=== PATIENT | male | born 1940 | race Caucasian/White ===

== ENCOUNTER 2016-05-28 17:16 | Inpatient (IN) ==
--- NOTE | 2016-05-28 18:54 | PROVIDER DOCUMENTATION ---
HPI-General Adult - General Chief Complaint: Fall Stated Complaint: WEAKNESS/FALL Time Seen by Provider: 05/28/16 18:41 Source: patient, family Allergies/Adverse Reactions: Patient Allergies Allergy/AdvReac Type Severity Reaction Status Date / Time esomeprazole magnesium * Allergy Mild NAUSEA/VOMI Verified 05/28/16 18:36 [From Nexium] TING oxycodone HCl * Allergy Mild Unknown Verified 05/28/16 18:36 [From OxyContin] latex Allergy SWELLING Verified 05/28/16 18:36 Home Medications: Home Medication List Medication Instructions Recorded Confirmed Last Taken Type Alfuzosin HCl [Alfuzosin HCl ER] 10 mg PO HS 08/30/13 05/28/16 05/27/16 History Bisacodyl [Dulcolax] 20 mg VT HS #0 supp 09/02/13 05/28/16 05/28/16 Rx Donepezil [Aricept] 5 mg PO QHS #0 tablet 09/02/13 05/28/16 05/27/16 Rx Diltiazem C.d. [Cardizem Cd] 120 mg PO DAILY 04/20/16 05/28/16 05/28/16 History Divalproex Sodium [Depakote] 1,000 mg PO HS 04/20/16 05/28/16 05/27/16 History LISINOpril [Prinivil] 10 mg PO DAILY 04/20/16 05/28/16 05/28/16 History Levothyroxine [Synthroid] 100 microgm PO DAILY 04/20/16 05/28/16 05/27/16 History Carbidopa/Levodopa [Sinemet 25/100] 2 each PO BID #120 tablet 04/27/16 05/28/16 05/28/16 Rx Clonazepam [Klonopin] 0.5 mg PO BID #60 tablet 04/27/16 05/28/16 05/28/16 Rx Quetiapine [Seroquel] 25 mg PO QAM #30 tablet 04/27/16 05/28/16 05/28/16 Rx Insulin Lispro Protamin/Lispro 24 unit SQ BID 05/15/16 05/28/16 05/28/16 History [Humalog Mix 50-50 Vial] Linaclotide [Linzess] 145 mcg PO DAILY 01/05/28/16 05/27/16 History Quetiapine [Seroquel] 50 mg PO QHS 05/15/16 05/28/16 05/27/16 History Trazodone [Desyrel] 50 mg PO HS PRN PRN 05/15/16 05/28/16 05/20/16 18:00 History - History of Present Illness -Gen Adult Nature of Presenting Problems: Pt is a 75 y/o M c chief complaint of weakness and fall at home today. Pt has a h/o Parkinson's and is normally able to ambulate c a walker however today he collapsed and was unable to bear weight on his lower extremities. Pt was recently d/c on 04/27 from this hospital after treatment for sepsis secondary to UTI. Pt denies any LOC. His states that the fall was unwitnessed and she found him on the floor. On arrival, pt is in minimal distress, alert, oriented. Review of Systems - Adult - REVIEW OF SYSTEMS - ADULT Constitutional: reports: fatique. denies: chills, fever Eyes: reports: no symptoms reported. denies: blurred vision, double vision Ears, Nose, Mouth & Throat: reports: no symptoms reported. denies: ear pain, nose pain, throat pain Cardiovascular: reports: no symptoms reported Respiratory: reports: no symptoms reported. denies: cough, shortness of breath , wheezing Gastrointestinal: reports: no symptoms reported. denies: abdominal pain, nausea Genitourinary: reports: frequent UTI's. denies: flank pain, hematuria Musculoskeletal: reports: muscle aches. denies: joint pain, joint swelling Integumentary: reports: no symptoms reported. denies: itching, rash Neurological: reports: dizziness/vertigo, loss of balance, tremors Psychiatric: reports: no symptoms reported. denies: anxiety, emotional problems Endocrine: reports: no symptoms reported. denies: cold intolerance, heat intolerance Hematologic/Lymphatic: reports: no symptoms reported. denies: blood clots, low blood count Allergic/Immunologic: reports: no symptoms reported All Other Systems: Reviewed and Negative Past History - Adult - PAST MEDICAL HISTORY-ADULT Review of Records: reports: Old Records Reviewed, Nursing Assessment Review, Medications Reviewed, Social history reviewed & non-contributory. Major Childhood Illnesses: reports: denies history Cardiovascular: reports: HTN, hyperlipidemia Respiratory: reports: denies history Gastrointestinal: reports: denies history Obstetrical/Gynecological: reports: denies history Genitourinary: reports: denies history Musculoskeletal: reports: denies history Neurological: reports: CVA, Parkinson's Endocrine/Immune: reports: Diabetes Other Conditions: reports: denies history - PRIOR SURGERIES/PROCEDURES Surgical/Procedure History: reports: recent surgery, other (TURP) - IMMUNIZATION STATUS Childhood Immunizations: See Nurse Assessment Flu Vaccine: See Nurse Assessment - FAMILY HISTORY Family History: reviewed, not pertinent - SOCIAL HISTORY Smoking: denies Substance Use: none/never Alcohol Use Frequency: never Living Situation: family Physical Exam-General - PHYSICAL EXAM-ADULT Initial Vital Signs Reviewed: Yes - CONSTITUTIONAL General Appearance: appears well, alert, no apparent distress - EYES Eyes: PERRL/EOMI, pink conjunctivae, fundi clear, no AV nicking - HEAD, EARS, NOSE, MOUTH & THROAT HENMT: normocephalic/atraumatic, moist mucous membranes, normal ENT inspection - NECK Neck: non-tender, full range of motion, supple - RESPIRATORY Respiratory: chest non-tender, lungs clear, normal breath sounds - CARDIOVASCULAR Cardiovascular: normal peripheral pulses, regular rate, rhythm, no edema - GASTROINTESTINAL (ABDOMEN) Abdominal Exam: normal bowel sounds, non tender, soft - MUSCULOSKELETAL Back Exam: normal inspection, no CVA tenderness, no vertebral tenderness Extremity: normal gait (PT ABLE TO AMBULATE ACROSS THE EXAM ROOM C MINIMAL ASSISTANCE C BALANCE.), other (RIGID STAGGERING MOVEMENTS) Progress - PLAN OF CARE/RESULTS Progress/Plan/Lab Results: Orders Category Date Time Status CHEST-1 VIEW [RAD] Stat Exams 05/28/16 18:50 Taken HEAD/C-SPINE W/O CONTRAST [CT] Stat Exams 05/28/16 18:49 Taken CBC WITH ELECTRONIC DIFF [HEME] Stat Lab 05/28/16 19:07 Completed CK PROFILE [SP CHEM] Stat Lab 05/28/16 19:07 Completed COMPREHENSIVE METABOLIC PANEL [CHEM] Stat Lab 05/28/16 19:07 Completed MAGNESIUM [CHEM] Stat Lab 05/28/16 19:07 Completed PRO B-NATRIURETIC PEPTIDE Stat Lab 05/28/16 19:07 Completed PROTIME WITH INR [COAG] Stat Lab 05/28/16 19:07 Completed PTT [COAG] Stat Lab 05/28/16 19:07 Completed TROPONIN T Stat Lab 05/28/16 19:07 Completed UA Reflex [URINALYSIS W/POSS RFLX CULT] [URINALYSIS] Lab 05/28/16 19:03 Completed Stat URINE CULTURE [RM] Routine Lab 05/28/16 19:32 Received 0.9% Sodium Chloride Inj [Ns] 1,000 ml Med 05/28/16 20:49 Active IV 100 mls/hr CefTRIAXONE 1 GM/NS [Rocephin 1 gm/Ns] 50 ml Med 05/28/16 20:49 Active IV NOW EKG [EKG] Stat Ther 05/28/16 18:49 Ordered Laboratory Tests 05/28/16 05/28/16 05/28/16 19:03 19:07 19:07 WBC 11.18 H RBC 3.77 L Hgb 10.5 L Hct 32.7 L MCV 86.7 MCH 27.9 MCHC 32.1 L RDW Std Deviation 15.8 H Plt Count 407 H MPV 9.8 Immature Gran % (Auto) 1.3 H Neut % (Auto) 64.6 Lymph % (Auto) 18.2 L Tyrrell % (Auto) 15.3 H Eos % (Auto) 0.4 Baso % (Auto) 0.2 Immature Gran # (Auto) 0.15 H Neut # (Auto) 7.22 H Lymph # (Auto) 2.03 Tyrrell # (Auto) 1.71 H Eos # (Auto) 0.05 Baso # (Auto) 0.02 PT INR PTT (Actin FS) Sodium 127 L Potassium 5.1 Chloride 90 L Carbon Dioxide 22 L Anion Gap 15 BUN 21 Creatinine 1.9 H Estimated GFR/1.73 m2 35 BUN/Creatinine Ratio 11 Glucose 128 H Calculated Osmolality 260 Calcium 9.4 Magnesium 2.1 Total Bilirubin 0.43 AST 14 ALT 8 L Alkaline Phosphatase 67 Creatine Kinase 39 Troponin T [id number] Pept Total Protein 7.2 Albumin 3.3 L Globulin 3.9 Albumin/Globulin Ratio 0.8 Urine Source CLEAN CATCH Urine Color YELLOW Urine Turbidity CLEAR Urine pH 7.0 Ur Specific [place] 1.019 Urine Protein 200 A Ur Glucose (Stick) NEGATIVE Ur Ketones (Stick) 10 A Urine Blood MODERATE A Urine Nitrite NEGATIVE Urine Bilirubin NEGATIVE Urobilinogen Dipstick NORMAL Urine Leukocytes MODERATE A Urine WBC (Auto) 10-20 A Urine RBC (Auto) TNTC A U Epithel Cells (Auto) <10 Urine Bacteria (Auto) NEGATIVE 05/28/16 05/28/16 05/28/16 19:07 19:07 19:07 WBC RBC Hgb Hct MCV MCH MCHC RDW Std Deviation Plt Count MPV Immature Gran % (Auto) Neut % (Auto) Lymph % (Auto) Tyrrell % (Auto) Eos % (Auto) Baso % (Auto) Immature Gran # (Auto) Neut # (Auto) Lymph # (Auto) Tyrrell # (Auto) Eos # (Auto) Baso # (Auto) PT 11.5 INR 1.08 PTT (Actin FS) 31.3 Sodium Potassium Chloride Carbon Dioxide Anion Gap BUN Creatinine Estimated GFR/1.73 m2 BUN/Creatinine Ratio Glucose Calculated Osmolality Calcium Magnesium Total Bilirubin AST ALT Alkaline Phosphatase Creatine Kinase Troponin T < 0.010 Nbk-[id number]-Trbuktbhyzc Pept 1352 H Total Protein Albumin Globulin Albumin/Globulin Ratio Urine Source Urine Color Urine Turbidity Urine pH Ur Specific [place] Urine Protein Ur Glucose (Stick) Ur Ketones (Stick) Urine Blood Urine Nitrite Urine Bilirubin Urobilinogen Dipstick Urine Leukocytes Urine WBC (Auto) Urine RBC (Auto) U Epithel Cells (Auto) Urine Bacteria (Auto) Vital Signs - 24 hr 05/28/16 05/28/16 17:52 20:45 Temperature 98.5 F Pulse Rate 87 99 H Respiratory 20 18 Rate Blood Pressure 122/57 143/62 O2 Sat by Pulse 100 100 Oximetry - REASSESSMENT Reassessment #1 Time Reassessed: 20:45 (Discussed c Dr. Trina LENTZ MD who agreed c admission and went to bedside. ) - XRAY 1 XRAY Study: Chest Impression: Normal XRAY Interpretation: nad - CT/MRI 1 CT Study: Cervical Spine, Head Impression: Normal (NAP, intracranially. Severe DJD but no fx or other definite acute cspine injury - radiology) - CONSULTS/PCP/HOSPITALIST Notification #1 *Consult/PCP/Hospitalist*: Dr. Pool (ER ) Time Discussed: 21:10 Reason/Comments: Will see pt and admit. Departure - Departure Time of Disposition Order: 20:50 DIAGNOSIS: Hyponatremia, Weakness UTI (urinary tract infection) Qualifiers: Urinary tract infection type: site unspecified Hematuria presence: without hematuria Qualified Code(s): N39.0 - Urinary tract infection, site not specified Disposition: ADMITTED INPATIENT 09 Certified Medical Emergency: Emergent Condition: Stable Referrals: Chandrika Salgado MD [Primary Care Provider] - Attestation - Physician/ [place] Attestation Patient care was provided by Advanced Practice Provider:: Yes Advanced Practice Provider:: Neil Marcelo Advanced Practice Provider documentation review:: The Mid-level provider documentation, treatment plan and medical decision making was reviewed by the physician who agrees with all treatment and medical decision making by the MLP.
[2016-05-28 19:16] LABS: URINE MICRO REVIEW NEEDED? NO; URINE SOURCE CLEAN CATCH
[2016-05-28 19:16] LABS: MANUAL DIFF NEEDED? NO
[2016-05-28 19:22] LABS: BASO% 0.2 % (0.0-0.8); EOS# 0.05 X1000 (0.0-0.7); EOS% 0.4 % (0.0-10.0); HEMATOCRIT 32.7 % (42.0-52.0); HEMOGLOBIN 10.5 g/dL (14.0-18.0); IMM GRAN# 0.15 X1000 (0.0-0.04); IMM GRAN% 1.3 % (0.0-0.5); LYMPH# 2.03 X1000 (1.2-3.4); LYMPH% 18.2 % (20.5-51.1); MCH 27.9 PG (27-31); MCHC 32.1 g/dL (33-37); MCV 86.7 FL (81-99); MONO# 1.71 X1000 (0.11-0.59); MONO% 15.3 % (1.7-9.3); MPV 9.8 FL (7.4-10.4); NEUT% 64.6 % (42.2-75.2); PLT 407 X1000 (130-400); RBC 3.77 XMIL (4.7-6.1)
[2016-05-28 19:25] LABS: BILIRUBIN URINE NEGATIVE (NEGATIVE); BLOOD URINE MODERATE (NEGATIVE); COLOR YELLOW; GLUCOSE URINE NEGATIVE (NEGATIVE); LEUKOCYTES URINE MODERATE (NEGATIVE); NITRITE URINE NEGATIVE (NEGATIVE); PROTEIN URINE 200 mg/dL (NEGATIVE); SP GRAVITY URINE 1.019; TURBIDITY URINE CLEAR (CLEAR); UR EPITHELIAL CELLS <10 /HPF (<10); URINE BACTERIA NEGATIVE /HPF; URINE CULTURE NEEDED? YES; URINE RBC TNTC /HPF (<10); UROBILINOGEN URINE NORMAL (NORMAL)
[2016-05-28 19:45] LABS: ALBUMIN 3.3 g/dL (3.5-5.0); CALCIUM 9.4 mg/dL (8.8-10.2); MAGNESIUM 2.1 mg/dL (1.5-2.7); POTASSIUM 5.1 mmol/L (3.5-5.1); TOTAL BILIRUBIN 0.43 mg/dL (0.20-1.00); TOTAL PROTEIN 7.2 g/dL (6.3-8.3)
[2016-05-28 20:35] LABS: INR 1.08; PROTIME 11.5 Seconds (9.2-11.7); PTT 31.3 Seconds (22.0-36.0)
[2016-05-28] MEDS ORDERED: NS 1,000 ML IV ONE (20:49)
[2016-05-28] MEDS ORDERED: ROCEPHIN 1 GM/NS 50 ML IV ONE (20:49)
--- NOTE | 2016-05-28 22:09 | Diag Imaging Result Document ---
PROCEDURE NAME: HEAD/C-SPINE W/O CONTRAST - 05/28/2016 STUDY: CT brain and cervical spine without. BRAIN: No parenchymal hemorrhage. No epidural or subdural hematoma. No subarachnoid hemorrhage,. No skull fracture. There is atrophy with chronic microvascular ischemic changes. No hydrocephalus. No sinus opacification. There is motion on the upper images. IMPRESSION: 1. No hemorrhage. No injury. 2. Atrophy with chronic microvascular ischemic changes. CT CERVICAL SPINE WITHOUT CONTRAST: There are at least moderate degenerative changes in the mid and lower cervical spine. There is reversal of the normal curvature. No precervical soft tissue swelling. No subluxation. No fracture. IMPRESSION: 1. No acute bony injury. 2. Reversal of the normal curvature with moderate prominent degenerative changes. A preliminary report was given at 8:37 p.m.
--- NOTE | 2016-05-28 23:55 | HISTORY AND PHYSICAL ---
PRIMARY CARE PHYSICIAN: Dr. Jennie Salgado. CHIEF COMPLAINT: Recurrent falls. HISTORY OF PRESENTING ILLNESS: A 75-year-old male with a history of Parkinson's, diabetes mellitus type 2, vascular dementia, apparently had presented to emergency department after he had another fall. He states that he was unable to get up. He was on the bathroom floor about 2 hours. He was brought to the emergency department and he had routine labs which did show that he had hyponatremia and apparently was in renal failure and due to his presenting symptoms, it was thought that he would need hospitalization for further management. The patient is a poor historian however he had denied having any headache, fever, chills, chest pain, shortness of breath, hemoptysis or weight changes. PAST MEDICAL HISTORY: Includes Parkinson's, diabetes mellitus type 2, BPH, dementia. PAST SURGICAL HISTORY: Hernia repair, left leg surgery, tonsillectomy, cataract surgery, TURP. ALLERGIES: To oxycodone, Nexium, magnesium and latex. CURRENT MEDICATIONS: As listed in MAR. SOCIAL HISTORY: He is a former smoker. Quit about 5 years ago. Admits to social alcohol use. Denies any illicit drug use. FAMILY HISTORY: Positive for coronary disease in mother. REVIEW OF SYSTEMS: Is limited due to his dementia. PHYSICAL EXAMINATION: GENERAL: The patient is resting comfortably. VITAL SIGNS: Temperature 98.5 degrees, pulse 87, respirations 20, blood pressure 122/57, saturating 100%. HEENT: Normocephalic. Extraocular movements intact. PERRLA. NECK: No masses. CHEST: Clear to auscultation. CARDIOVASCULAR: Regular rate, rhythm. ABDOMEN: Soft. Positive bowel sounds. EXTREMITIES: No edema. NEURO: He is awake, alert, oriented x3. : No bladder distention. SKIN: Warm. LABORATORIES AND STUDIES: WBC 11.18, hemoglobin 10.5, hematocrit 32.7, platelets 407,000. Sodium 127, potassium 5.1, chloride 90, CO2 22, BUN is 21, creatinine 1.9, glucose is 128. UA shows moderate leukocytes. ASSESSMENT: This is a 75-year-old male with a history of Parkinson's, diabetes mellitus type 2, dementia, had presented to emergency department after he had a fall. He was found to have on laboratory low sodium and apparently is in renal failure. He will need hospitalization for further management. 1. Status post recurrent falls. 2. Hyponatremia. 3. Acute on chronic kidney disease. Baseline creatinine 1.4. 4. Parkinson's. 5. Suspected recurrent urinary tract infection. PLAN: 1. We will admit patient to medical floor with telemetry. 2. Continue with IV fluid hydration. 3. We will monitor electrolytes. 4. We will monitor his renal function. 5. We will check urine culture and put patient on empiric antibiotics. 6. We will start his home medications for Parkinson's. 7. Put the patient on DVT prophylaxis with SCDs. 8. We will continue to follow and reassess.
[2016-05-29] MEDS ORDERED: NS 1,000 ML IV SCH ×2 (00:15→10:10)
[2016-05-29] MEDS ORDERED: ZOFRAN IV PRN (00:15)
[2016-05-29] MEDS: DEPAKOTE PO SCH ×3 (01:43→23:03)
[2016-05-29] MEDS: SEROQUEL PO SCH ×4 (01:44→23:02)
[2016-05-29] MEDS: DESYREL PO PRN (01:44)
[2016-05-29] MEDS: KLONOPIN PO SCH ×4 (01:44→23:02)
[2016-05-29] MEDS: ARICEPT PO SCH ×3 (01:44→23:03)
[2016-05-29] MEDS: ROCEPHIN 1 GM/NS 50 ML IV SCH (01:45)
[2016-05-29] MEDS: UROXATRAL PO SCH ×2 (03:53→23:03)
[2016-05-29] MEDS: SINEMET 25/100 PO SCH ×3 (03:53→23:02)
--- NOTE | 2016-05-29 08:05 | Diag Imaging Result Document ---
PROCEDURE NAME: CHEST-1 VIEW - 05/28/2016 PORTABLE CHEST X-RAY, 05/28/20160: COMPARISON: 04/20/2016. FINDINGS: The lungs are normally expanded and clear. Heart size and mediastinal contours are normal. No pneumothorax or pleural effusion. IMPRESSION: Negative exam.
[2016-05-29 08:13] LABS: BASO% 0.2 % (0.0-0.8); EOS# 0.12 X1000 (0.0-0.7); EOS% 1.1 % (0.0-10.0); HEMATOCRIT 31.2 % (42.0-52.0); IMM GRAN# 0.09 X1000 (0.0-0.04); IMM GRAN% 0.8 % (0.0-0.5); LYMPH# 2.46 X1000 (1.2-3.4); LYMPH% 22.7 % (20.5-51.1); MANUAL DIFF NEEDED? YES; MCH 28.2 PG (27-31); MCHC 32.1 g/dL (33-37); MCV 88.1 FL (81-99); MONO# 2.32 X1000 (0.11-0.59); MONO% 21.4 % (1.7-9.3); NEUT% 53.8 % (42.2-75.2); PLT 381 X1000 (130-400); RBC 3.54 XMIL (4.7-6.1)
[2016-05-29 08:23] LABS: CALCIUM 9.2 mg/dL (8.8-10.2); POTASSIUM 5.3 mmol/L (3.5-5.1)
[2016-05-29 08:40] LABS: BANDS 6 % (0-1); LYMPHS 36 % (21-51); MONO 12 % (1-9)
[2016-05-29] MEDS: CARDIZEM CD PO SCH (08:46)
[2016-05-29] MEDS: PRINIVIL PO SCH (08:47)
[2016-05-29] MEDS: LINZESS PO SCH (08:47)
[2016-05-29] MEDS: SYNTHROID PO SCH (08:54)
[2016-05-29] MEDS: COZAAR PO SCH (08:54)
[2016-05-30] MEDS: ROCEPHIN 1 GM/NS 50 ML IV SCH ×2 (01:27→23:21)
[2016-05-30] MEDS: SYNTHROID PO SCH (06:07)
[2016-05-30] MEDS: PRINIVIL PO SCH (09:58)
[2016-05-30] MEDS: COZAAR PO SCH (09:58)
[2016-05-30] MEDS: SINEMET 25/100 PO SCH ×2 (09:58→20:26)
[2016-05-30 09:59] LABS: HEMATOCRIT 26.6 % (42.0-52.0); HEMOGLOBIN 8.6 g/dL (14.0-18.0); MCH 28.2 PG (27-31); MCHC 32.3 g/dL (33-37); MCV 87.2 FL (81-99); MPV 10.1 FL (7.4-10.4); RBC 3.05 XMIL (4.7-6.1)
[2016-05-30] MEDS: KLONOPIN PO SCH ×2 (09:59→20:26)
[2016-05-30] MEDS: SEROQUEL PO SCH ×3 (09:59→20:26)
[2016-05-30] MEDS: CARDIZEM CD PO SCH (09:59)
[2016-05-30] MEDS: LINZESS PO SCH (09:59)
[2016-05-30] MEDS: INSULIN LISPRO PROTAMINE SQ SCH ×2 (10:10→20:27)
[2016-05-30] MEDS: INSULIN LISPRO SQ SCH ×2 (10:10→20:27)
[2016-05-30 10:27] LABS: CALCIUM 8.8 mg/dL (8.8-10.2); POTASSIUM 5.3 mmol/L (3.5-5.1)
[2016-05-30] MEDS ORDERED: VANCOMYCIN 1 GM/NS 250 ML IV ONE (10:36)
--- NOTE | 2016-05-30 11:02 | PROGRESS NOTE ---
DATE: 05/30/2016 SUBJECTIVE: Mr. Kinsey has a longstanding history of vascular dementia. He seems much more alert and interactive with family and staff. He still has periods of confusion and disorientation. His blood pressure is generally well controlled. Systolic blood pressures are ranging from 112-125 whereas his diastolic blood pressures are ranging from 54-62. His blood sugars are ranging from 147-212. He is making slow progress with physical therapy. OBJECTIVE: Vital signs: Temperature 99.4 degrees. Pulse 82. BP 112/54. CV: Regular rate and rhythm. Lungs: Clear. Abdomen: Soft, nontender, with active bowel sounds. ASSESSMENT AND PLAN: 1. Metabolic encephalopathy. I suspect that the metabolic encephalopathy was multifactorial. He had hyponatremia with a serum sodium of 127 on admission. We have cautiously rehydrated him and his serum sodium is normalized to 132. He has had recurrent urinary tract infections. Blood cultures and a urine culture have been negative. He is still on IV antibiotics. His chest x-ray was clear on admission. We have also tried to simplify some of his medications. 2. Parkinson's disease. He has a longstanding history of Parkinson's disease. He had increasing tremor on admission. I have increased the Sinemet to 25/100 two tablets b.i.d. 3. Type 2 insulin-dependent diabetes mellitus. We will continue an 1800 calorie ADA diet, pattern sugars, and a Humulin R sliding scale with his regular dosage of Novolin 70/30, 24 units subcutaneously b.i.d. I have had a long talk with Mrs. Kinsey in regard to her . He had recently undergone rehab at [facility]. [facility] does not have a bed at this time. We will continue physical therapy in the hospital at this time. The family does not really want to try to place him in another rehab facility unless it is absolutely necessary. I am hoping that, with physical therapy in the hospital, he will be strong enough to return home with home health. We have also talked about the palliative care program with [facility].
[2016-05-30] MEDS: UROXATRAL PO SCH (20:26)
[2016-05-30] MEDS: ARICEPT PO SCH (20:26)
[2016-05-30] MEDS ORDERED: TYLENOL PO ONE (23:12)
[2016-05-30] MEDS ORDERED: TYLENOL PO PRN (23:13)
[2016-05-31] MEDS: DEPAKOTE SPRINKLE PO SCH ×2 (00:35→22:05)
[2016-05-31] MEDS: SYNTHROID PO SCH (06:42)
[2016-05-31] MEDS ORDERED: VANCOMYCIN 1 GM/NS 250 ML IV ONE (09:00)
[2016-05-31] MEDS: CARDIZEM CD PO SCH (09:02)
[2016-05-31] MEDS: LINZESS PO SCH (09:02)
[2016-05-31] MEDS: PRINIVIL PO SCH (09:02)
[2016-05-31] MEDS: KLONOPIN PO SCH ×2 (09:02→22:05)
[2016-05-31] MEDS: COZAAR PO SCH (09:02)
[2016-05-31] MEDS: SINEMET 25/100 PO SCH ×2 (09:02→22:05)
[2016-05-31] MEDS: INSULIN LISPRO SQ SCH ×2 (09:02→22:06)
[2016-05-31] MEDS: SEROQUEL PO SCH ×2 (09:02→22:05)
[2016-05-31] MEDS: INSULIN LISPRO PROTAMINE SQ SCH ×2 (09:02→22:06)
--- NOTE | 2016-05-31 09:10 | PROGRESS NOTE ---
DATE: 05/31/2016 SUBJECTIVE: Mr. Kinsey has a longstanding history of vascular dementia. He was admitted with periods of confusion and disorientation. He spiked a fever last night to 102.5 degrees. This morning, his temperature was low at 91. He has calm and easily arousable. He is oriented to name and place. He carries on a conversation. His blood pressure remains stable. Urine culture grew out enterococcus faecalis. OBJECTIVE: Vital signs: Temperature 91.8 degrees, pulse 62, respirations 17, BP 104/76. CV: Regular rate and rhythm. Lungs: Clear. Abdomen: Soft, nontender, with active bowel sounds. ASSESSMENT AND PLAN: 1. Metabolic encephalopathy. He appears to be back to his baseline neurologically. He is hypothermic. He did spike a fever last night. Urine cultures grew out Enterococcus. I am going to stop the Rocephin and begin vancomycin and ampicillin and repeat blood cultures. We will begin a warming blanket. He does not appear confused beyond his normal baseline this morning. His blood pressure is good. I am going to check a CBC and a BMP, as well as lactic acid. I do not believe that he is septic at this time. 2. Parkinson disease. His tremor has improved. We will continue Sinemet 25/100 two tablets b.i.d. 3. Type 2 insulin-dependent diabetes mellitus. We will continue an 1800 calorie ADA diet, pattern sugars, Humulin R sliding scale, and his regular home dosage of Novolin 70/30 24 units subcutaneously b.i.d.
[2016-05-31 09:43] LABS: MANUAL DIFF NEEDED? NO
[2016-05-31 10:00] LABS: BASO% 0.1 % (0.0-0.8); EOS# 0.42 X1000 (0.0-0.7); EOS% 6.2 % (0.0-10.0); HEMATOCRIT 29.7 % (42.0-52.0); HEMOGLOBIN 9.2 g/dL (14.0-18.0); IMM GRAN# 0.06 X1000 (0.0-0.04); IMM GRAN% 0.9 % (0.0-0.5); LYMPH# 1.23 X1000 (1.2-3.4); LYMPH% 18.3 % (20.5-51.1); MCH 27.2 PG (27-31); MCV 87.9 FL (81-99); MONO# 1.11 X1000 (0.11-0.59); MONO% 16.5 % (1.7-9.3); MPV 10.6 FL (7.4-10.4); PLT 325 X1000 (130-400); RBC 3.38 XMIL (4.7-6.1)
[2016-05-31 10:14] LABS: CALCIUM 9.4 mg/dL (8.8-10.2); POTASSIUM 5.5 mmol/L (3.5-5.1)
[2016-05-31] MEDS: AMPICILLIN 1 GM/NS 50 ML IV SCH ×3 (10:15→22:05)
[2016-05-31] MEDS: ARICEPT PO SCH (22:05)
[2016-05-31] MEDS: UROXATRAL PO SCH (22:05)
[2016-06-01] MEDS: AMPICILLIN 1 GM/NS 50 ML IV SCH ×4 (03:34→22:57)
[2016-06-01] MEDS: SYNTHROID PO SCH (06:06)
[2016-06-01] MEDS: CARDIZEM CD PO SCH (09:43)
[2016-06-01] MEDS: COZAAR PO SCH (09:43)
[2016-06-01] MEDS: LINZESS PO SCH (09:43)
[2016-06-01] MEDS: INSULIN LISPRO SQ SCH ×2 (09:44→20:19)
[2016-06-01] MEDS: SEROQUEL PO SCH ×2 (09:44→20:11)
[2016-06-01] MEDS: INSULIN LISPRO PROTAMINE SQ SCH ×2 (09:44→20:19)
[2016-06-01] MEDS: KLONOPIN PO SCH ×2 (09:44→20:11)
[2016-06-01] MEDS: PRINIVIL PO SCH (09:44)
[2016-06-01] MEDS: SINEMET 25/100 PO SCH ×2 (09:44→20:11)
--- NOTE | 2016-06-01 15:03 | PROGRESS NOTE ---
DATE: 06/01/2016 75-year-old, history of Parkinson's disease, diabetes mellitus type 2, vascular dementia, apparently presented to the emergency department after he had another fall, states he was unable to get up, was in the bathroom for about 2 hours and brought to the emergency room. Had routine labs which showed that he had hyponatremia and apparently renal failure due to his presenting symptoms. It was thought that he would need hospitalization for further management. The patient is a poor historian, however, and denied any headache, fever, chills, chest pain, shortness of breath. No hemoptysis or weight changes. PAST MEDICAL HISTORY: Includes Parkinson's disease, diabetes mellitus type 2, benign prostatic hypertrophy and dementia. The patient was admitted and given IV fluids. Status post recurrent falls, hyponatremia, acute on chronic kidney disease, and history of parkinsonism. He states he feels better. He felt like maybe he had a urinary tract infection. He did describe some episodes of diaphoresis. OBJECTIVE: Temp 98.4 degrees, pulse 89, respirations 20, blood pressure 154/107. Pupils are equal, round. Lungs: Are clear in all lung lizarraga. Cardiovascular: Regular rhythm and rate without murmur or S3. Abdomen: Soft. Skin: Is warm and dry. Good urine output. LAB: White count from 05/31/2016, 6730, hematocrit 29, platelet count 325,000. Blood sugars 253, 115, 235. Chest x-ray from 05/[address] of the head and cervical spine, no acute bony abnormality. No acute injury. ASSESSMENT AND PLAN: 1. Metabolic encephalopathy. Appears to be back to his baseline neurologically according Dr. Salgado. He did have a little bit of hypothermia, did spike a fever. Urine grew out enterococcus so stopped the Rocephin, began vancomycin and ampicillin. He appears clinically better. 2. Parkinson's disease. His tremors improved. He is on Senokot 25-100, 2 tablets b.i.d. 3. Blood sugars. Blood sugars look well controlled. REVIEW OF ORDERS: I do not see anything to change at this point, on ampicillin 1 g q. 6, Depakote 500 mg at bedtime, insulin 25 units b.i.d., Seroquel 50 mg q.a.m., Cozaar 25 mg daily, Uroxatral 10 mg at bedtime, Synthroid 100 mcg daily, carbidopa levodopa he takes 2 b.i.d., Seroquel 50 mg at bedtime, Prinivil 10 mg daily, Linzess 145 mcg daily, Klonopin 0.5 mg b.i.d., Cardizem 120 mg daily. Aricept 5 mg at bedtime, trazodone 50 mg at bedtime. Continue present treatment. I think he will probably be here through this weekend.
[2016-06-01] MEDS ORDERED: INSULIN PEN NEEDLES ONE (16:12)
[2016-06-01] MEDS: UROXATRAL PO SCH (20:10)
[2016-06-01] MEDS: DEPAKOTE SPRINKLE PO SCH (20:10)
[2016-06-01] MEDS: ARICEPT PO SCH (20:11)
[2016-06-02] MEDS: AMPICILLIN 1 GM/NS 50 ML IV SCH ×4 (04:57→20:59)
[2016-06-02] MEDS: SYNTHROID PO SCH (06:17)
[2016-06-02] MEDS: CARDIZEM CD PO SCH (08:46)
[2016-06-02] MEDS: INSULIN LISPRO SQ SCH ×2 (08:47→20:45)
[2016-06-02] MEDS: PRINIVIL PO SCH (08:47)
[2016-06-02] MEDS: COZAAR PO SCH (08:47)
[2016-06-02] MEDS: KLONOPIN PO SCH ×2 (08:47→20:45)
[2016-06-02] MEDS: INSULIN LISPRO PROTAMINE SQ SCH ×2 (08:47→20:45)
[2016-06-02] MEDS: LINZESS PO SCH (08:47)
[2016-06-02] MEDS: SEROQUEL PO SCH ×2 (08:47→20:44)
[2016-06-02] MEDS: SINEMET 25/100 PO SCH ×2 (08:47→20:44)
[2016-06-02] MEDS ORDERED: CARDIZEM CD PO ONE (11:49)
--- NOTE | 2016-06-02 13:51 | Diag Imaging Result Document ---
PROCEDURE NAME: CHEST-2 VIEWS - 06/02/2016 AP AND LATERAL RADIOGRAPH OF THE CHEST: COMPARISON: 05/28/2016. FINDINGS: The lungs are grossly clear. There is no discrete pleural fluid collection or evidence of pneumothorax. The cardiomediastinal silhouette and upper airway are grossly unremarkable. IMPRESSION: No evidence of acute chest pathology.
--- NOTE | 2016-06-02 14:05 | PROGRESS NOTE ---
DATE: 06/02/2016 He is pleasant. He is not really sure why he is here. He talked about wanting to go to rehab. I have tried to explain that he is here for a potential infection and weakness and I am not sure if he understands because he still wants to know why he is here. He has remained afebrile. He is complaining of some diarrhea and loose stools.Vital signs: Temperature 98.9 degrees, pulse 76, respirations 18, blood pressure 96/36. HEENT: Pupils are equal, round. Lungs: Are clear in all lung lizarraga. Cardiovascular: Regular rhythm and rate without murmur or S3. Good urine output. Fingerstick blood sugar 296, 85, 211. I reviewed his lab from the . It looks pretty good. Chemistry reviewed as well. ASSESSMENT AND PLAN: 1. Metabolic encephalopathy. Appears to be returning to baseline. He did have a little bit of hypothermia and was treated for possible urinary tract infection. He is on ampicillin for enterococcus which grew from the urine. 2. Parkinson's disease. 3. Diabetes mellitus. Follow blood sugars. Before he was complaining of some loose stools and also talked about wanting to go to rehab. To recall, he came in on the and he does have a history of vascular dementia. We will continue present treatment. His hyponatremia seems to be improving.
[2016-06-02] MEDS: IMODIUM PO PRN ×2 (14:07→20:45)
[2016-06-02] MEDS: UROXATRAL PO SCH (20:44)
[2016-06-02] MEDS: ARICEPT PO SCH (20:44)
[2016-06-02] MEDS: DEPAKOTE SPRINKLE PO SCH (20:45)
[2016-06-03] MEDS: AMPICILLIN 1 GM/NS 50 ML IV SCH ×4 (04:56→21:58)
[2016-06-03] MEDS: SYNTHROID PO SCH (06:00)
[2016-06-03 06:34] LABS: MANUAL DIFF NEEDED? NO
[2016-06-03 06:35] LABS: BASO% 0.4 % (0.0-0.8); EOS# 0.51 X1000 (0.0-0.7); HEMATOCRIT 29.3 % (42.0-52.0); HEMOGLOBIN 9.5 g/dL (14.0-18.0); IMM GRAN# 0.15 X1000 (0.0-0.04); IMM GRAN% 1.8 % (0.0-0.5); LYMPH# 2.31 X1000 (1.2-3.4); LYMPH% 27.2 % (20.5-51.1); MCH 28.1 PG (27-31); MCHC 32.4 g/dL (33-37); MCV 86.7 FL (81-99); MONO# 1.06 X1000 (0.11-0.59); MONO% 12.5 % (1.7-9.3); MPV 10.6 FL (7.4-10.4); NEUT% 52.1 % (42.2-75.2); PLT 446 X1000 (130-400); RBC 3.38 XMIL (4.7-6.1)
[2016-06-03 06:59] LABS: AGAP 17; ALBUMIN 2.8 g/dL (3.5-5.0); ALKALINE PHOSPHATASE 117 U/L (32-122); BUN 38 mg/dL (8-22); CALCIUM 9.7 mg/dL (8.8-10.2); CHLORIDE 92 mmol/L (98-107); COSMO 270; GOT 29 U/L (10-34); GPT < 5 U/L (10-44); MAGNESIUM 2.7 mg/dL (1.5-2.7); POTASSIUM 4.5 mmol/L (3.5-5.1); SODIUM 130 mmol/L (136-145); TCO2 21 mmol/L (25-35); TOTAL BILIRUBIN 0.36 mg/dL (0.20-1.00); TOTAL PROTEIN 7.1 g/dL (6.3-8.3)
[2016-06-03] MEDS: COZAAR PO SCH (08:00)
[2016-06-03] MEDS: SEROQUEL PO SCH ×2 (08:00→20:27)
[2016-06-03] MEDS: LINZESS PO SCH (08:00)
[2016-06-03] MEDS: CARDIZEM CD PO SCH (08:00)
[2016-06-03] MEDS: PRINIVIL PO SCH (08:00)
[2016-06-03] MEDS: SINEMET 25/100 PO SCH ×2 (08:00→20:27)
[2016-06-03] MEDS: INSULIN LISPRO PROTAMINE SQ SCH ×2 (08:01→20:28)
[2016-06-03] MEDS: KLONOPIN PO SCH ×2 (08:01→20:27)
[2016-06-03] MEDS: INSULIN LISPRO SQ SCH ×2 (08:01→20:28)
[2016-06-03] MEDS: IMODIUM PO PRN ×2 (12:29→20:26)
[2016-06-03] MEDS: NS 1,000 ML IV SCH (15:22)
--- NOTE | 2016-06-03 16:53 | PROGRESS NOTE ---
DATE: 06/03/2016 SUBJECTIVE: He is sitting up in a chair. He is awake and pleasant. He states that he had some loose bowels yesterday. We put him on some medication. He states that he does not have much appetite, but he has been getting supplement nutrition. Overall, he seems to feel better. He does have kind of an intentional tremor seen in both hands.Vital signs: Temperature 97.5 degrees, pulse 62, respirations 20, blood pressure 103/53. Lungs: Are clear in all lung lizarraga. Cardiovascular: Regular rhythm and rate without murmur or S3. Abdomen: Soft. Skin: Warm and dry. Urine output over 300 mL. LABORATORY/IMAGING: White count 8490, hematocrit 29, platelet count 446,000. Hematocrit is stable. Blood sugars 211, 95, 97, 119, so blood sugars look better. Chest x-ray from yesterday showed no evidence of acute pathology. ASSESSMENT AND PLAN: 1. Metabolic encephalopathy which appears he is back to baseline. He had some hypothermia and he was treated for urinary tract infection, which seems to be better clinically. 2. Urinary tract infection. Grew out enterococcus. He is on ampicillin. 3. Parkinson's disease. 4. Diabetes mellitus type 2. Sugars have dipped down a little bit. He is not eating much. 5. Some loose stools. We will kind of see how that does. He is on ampicillin 1 g q.6 hours. He is also on medication for benign prostatic hypertrophy. He is on his usual Seroquel 50 mg q.a.m., Depakote 500 mg at bedtime. He is on his Linzess 145 mcg daily, so there is question of whether we may need to stop the Linzess. We will see how his bowels do, defer that to Dr. Salgado.
[2016-06-03] MEDS ORDERED: INSULIN PEN NEEDLES ONE (17:19)
[2016-06-03] MEDS: UROXATRAL PO SCH (20:27)
[2016-06-03] MEDS: ARICEPT PO SCH (20:27)
[2016-06-03] MEDS: DESYREL PO PRN (20:27)
[2016-06-03] MEDS: DEPAKOTE SPRINKLE PO SCH (20:27)
--- NOTE | 2016-06-04 02:46 | PROGRESS NOTE ---
DATE: 06/03/2016 ADDENDUM: This is a patient of Dr. Salgado. In looking at his creatinine, it has bumped up to 2.0. When I look back his baseline is close to 1. So I am going to give him some fluid and I will recheck his creatinine and electrolytes in the morning.
[2016-06-04] MEDS: AMPICILLIN 1 GM/NS 50 ML IV SCH ×4 (03:13→22:01)
[2016-06-04] MEDS: NS 1,000 ML IV SCH (05:57)
[2016-06-04] MEDS: SYNTHROID PO SCH (06:01)
[2016-06-04] MEDS ORDERED: [UNRECOGNIZED DRUG - OTHER] SQ SCH (08:16)
[2016-06-04] MEDS ORDERED: INSULIN LISPRO PROTAMINE SQ SCH (08:16)
[2016-06-04] MEDS: SINEMET 25/100 PO SCH ×2 (09:13→20:53)
[2016-06-04] MEDS: KLONOPIN PO SCH ×2 (09:13→20:52)
[2016-06-04] MEDS: PRINIVIL PO SCH (09:14)
[2016-06-04] MEDS: SEROQUEL PO SCH ×2 (09:14→20:53)
[2016-06-04] MEDS: CARDIZEM CD PO SCH (09:14)
[2016-06-04] MEDS: COZAAR PO SCH (09:14)
[2016-06-04] MEDS: [UNRECOGNIZED DRUG - OTHER] SQ SCH ×2 (09:15→20:54)
[2016-06-04] MEDS: INSULIN LISPRO PROTAMINE SQ SCH ×2 (09:15→20:54)
--- NOTE | 2016-06-04 11:54 | PROGRESS NOTE ---
DATE: 06/04/2016 SUBJECTIVE: Mr. Kinsey was admitted to [facility] with a metabolic encephalopathy secondary to UTI. His urine culture grew out enterococcus faecalis. Blood cultures were negative. Clinically, he is nearing his baseline. He was awake and easily arousable. He answered questions appropriately. He knew his name and that he was in the hospital. He knew who I was. He could also identify his . He does have baseline confusion and disorientation at baseline. He has had some acting-out spells in the past, but those episodes have been well controlled on Seroquel. He is still not eating a lot, but he has had several low blood sugars. His blood pressure is generally well controlled. OBJECTIVE: Vital signs: Temperature 97.3, pulse 75, respirations 20, BP 130/48. CV: Regular rate and rhythm. Lungs: Clear. Abdomen: Soft, nontender, with active bowel sounds. ASSESSMENT AND PLAN: 1. Metabolic encephalopathy. Clinically, he is back to his baseline. His renal function has improved back to a baseline of 1.5. He has maintained his core body temperature without a heating blanket. He remains afebrile. I am going to switch him to oral ampicillin for at least 3 weeks. We will continue physical therapy. He still is debilitated and I believe that he would benefit from further inpatient rehabilitation. I do not believe that he is strong enough to go home independently. 2. Type 2 insulin-dependent diabetes mellitus. He has had several episodes of hypoglycemia. I am going to reduce the dosage of insulin to 15 units subcutaneously b.i.d., continue pattern sugars and a Humulin R sliding scale.
[2016-06-04] MEDS ORDERED: INSULIN PEN NEEDLES ONE (16:13)
[2016-06-04] MEDS: ARICEPT PO SCH (20:53)
[2016-06-04] MEDS: UROXATRAL PO SCH (20:53)
[2016-06-04] MEDS: DEPAKOTE SPRINKLE PO SCH (20:54)
[2016-06-04] MEDS: DESYREL PO PRN (20:54)
[2016-06-05] MEDS: AMPICILLIN 1 GM/NS 50 ML IV SCH (03:55)
[2016-06-05 05:48] VITALS: BP 145/124
[2016-06-05] MEDS: SYNTHROID PO SCH (06:40)
[2016-06-05] MEDS: CARDIZEM CD PO SCH (09:10)
[2016-06-05] MEDS: COZAAR PO SCH (09:10)
[2016-06-05] MEDS: SINEMET 25/100 PO SCH (09:11)
[2016-06-05] MEDS: PRINIVIL PO SCH (09:12)
[2016-06-05] MEDS: KLONOPIN PO SCH (09:15)
[2016-06-05] MEDS: INSULIN LISPRO PROTAMINE SQ SCH (09:18)
[2016-06-05] MEDS: SEROQUEL PO SCH (09:18)
[2016-06-05] MEDS: [UNRECOGNIZED DRUG - OTHER] SQ SCH (09:18)
--- NOTE | 2016-06-05 11:00 | DISCHARGE SUMMARY ---
ADMISSION DATE: 05/29/2016 DISCHARGE DATE: 06/05/2016 DISCHARGE DIAGNOSES: 1. Metabolic encephalopathy. 2. Urinary tract infection with sepsis. 3. Hyponatremia present on admission. 4. Vascular dementia. 5. Parkinson disease. 6. Type 2 insulin-dependent diabetes mellitus. 7. Paroxysmal atrial fibrillation. 8. Primary hypothyroidism. DISCHARGE INSTRUCTIONS: 1. The patient will be transferred via ambulance to [facility] in order to continue short term rehabilitation. 2. Activity as tolerated. 3. 1800 calorie ADA diet. DISCHARGE MEDICATIONS: Uroxatral 10 mg daily. Ampicillin 500 mg q.6 hours for 2 weeks. Klonopin 0.5 mg b.i.d., diltiazem 120 mg daily. Depakote 500 mg daily, Aricept 5 mg daily. Levothyroxine 100 mcg daily. Lisinopril 10 mg daily. Losartan 25 mg daily, Humalog 50/50 at 15 units subcutaneously b.i.d., Seroquel 50 mg b.i.d., trazodone 50 mg at bedtime p.r.n. insomnia. PHYSICAL EXAMINATION: General: This is a chronically ill-appearing, 75-year-old gentleman in no apparent distress. Vital Signs: He is afebrile. Vital signs are stable. HEENT: Fundi with arteriolar wall thickening. Pupils equal, round, reactive to light. Extraocular eye movements intact. TMs without bullae. Neck: Supple. No masses, JVD or bruits. CV: Regular rate and rhythm. Lungs: Clear. Abdomen: Soft, nontender, with active bowel sounds. No hepatosplenomegaly. No abdominal bruits. HISTORY AND HOSPITAL COURSE: Mr. Julius Kinsey was admitted to [facility] with a metabolic encephalopathy. His initial CT scan demonstrated chronic white matter changes and diffuse atrophy. His initial serum sodium was 127. We cautiously rehydrated him and his serum sodium normalized to 132. Because Depakote can cause hyponatremia, we reduced the dosage of Depakote to 500 mg at night. He had previous urinary tract infections. His initial blood cultures were negative. His initial urine culture was negative. He eventually grew out enterococcus from the urine. He was treated with ampicillin and vancomycin. During his hospitalization, he did spike fevers as high as 102 degrees and his creatinine jumped from 1.6 to 2.0. His creatinine normalized back to his baseline of 1.5 with fluids and aggressive treatment of the underlying sepsis. With fluid resuscitation, normalization of the serum sodium and treatment of the underlying sepsis, he returned to his baseline neurologically. He has had acting- out behavior related to dementia. He has had episodes of rambling speech, flight of ideas, and auditory hallucinations. We did increase the dosage of Seroquel 50 mg b.i.d. Over the past several days, he has essentially been back to his baseline neurologically. He has been awake and easily arousable. He still has periods of confusion and disorientation, but is back at baseline. We will switch him to oral ampicillin and he will take an additional 2 week course of Ampicillin as an outpatient. I will recheck a urine culture following completion of his antibiotics. He does have a long-standing history of hypertension. His blood pressure remained generally well controlled throughout his hospitalization. He has a history of type 2 insulin-dependent diabetes mellitus. Blood sugars, we initially held his insulin while he was lethargic and difficult to arouse and treated him with a sliding scale. We resumed his dosage of NovoLog 50/50 at 24 units subcutaneously b.i.d., but backed down on the dosage to 15 units subcutaneously b.i.d., because of episodes of hypoglycemia. He does have a living will and in the event of a cardiopulmonary arrest, the family has requested that no heroic measures should be undertaken. Given his physical debility, we consulted physical therapy. We did not feel that he was strong enough to return home safely at this point in time. Arrangements were made for him to continue short-term rehab. I do anticipate, however, that he will require long-term penitentiary placement, as the family is having increasing difficulty managing him at home. Having reached maximum hospital benefit, the patient was discharged in stable condition.
== END 2016-06-05 12:15 | DRG 871 ==
LOC: ED 17:16 → 3N 05-29 00:02
PROVIDERS: ADMIT Internal Medicine; ATTEND Internal Medicine
DX: A41.9 Sepsis, unspecified organism (principal); G93.41 Metabolic encephalopathy; F01.51 Vascular dementia, unspecified severity, with behavioral disturbance; E11.649 Type 2 diabetes mellitus with hypoglycemia without coma; E87.1 Hypo-osmolality and hyponatremia; N39.0 Urinary tract infection, site not specified; G20 Parkinson's disease; N40.0 Benign prostatic hyperplasia without lower urinary tract symptoms; B95.2 Enterococcus as the cause of diseases classified elsewhere; Z66 Do not resuscitate; Z79.899 Other long term (current) drug therapy; Z91.81 History of falling; Z81.2 Family history of tobacco abuse and dependence; Z82.49 Family history of ischemic heart disease and other diseases of the circulatory system
CPT/HCPCS: 70450; 71010; 71020; 72125; 80048; 80053; 81001; 82550; 82948; 83605; 83735; 83880; 84443; 84484; 85025; 85027; 85610; 85730; 87040; 87077; 87088; 87186; 93005; 96365; J0290; J0696; J3370; J7030; 97116-GP; 97530-GP

== ENCOUNTER 2018-12-10 14:53 | Inpatient (IN) ==
[2018-12-10] MEDS ORDERED: NS 1,000 ML IV PRN (15:25)
[2018-12-10 15:42] LABS: BASO# 0.01 X1000 (0.0-0.2); BASO% 0.1 % (0.0-0.8); HEMATOCRIT 37.9 % (42.0-52.0); HEMOGLOBIN 12.2 g/dL (14.0-18.0); IMM GRAN# 0.14 X1000 (0.0-0.04); IMM GRAN% 1.3 % (0.0-0.5); LYMPH# 1.68 X1000 (1.2-3.4); LYMPH% 15.7 % (20.5-51.1); MCH 28.2 PG (27-31); MCHC 32.2 g/dL (33-37); MCV 87.7 FL (81-99); MONO# 0.65 X1000 (0.11-0.59); MONO% 6.1 % (1.7-9.3); MPV 10.2 FL (7.4-10.4); NEUT# 8.21 X1000 (1.4-6.5); NEUT% 76.8 % (42.2-75.2); PLT 273 X1000 (130-400); RBC 4.32 XMIL (4.7-6.1); RDW 14.2 % (11.5-14.5); WBC 10.69 X1000 (4.8-10.8)
--- NOTE | 2018-12-10 15:44 | EKG Report ---
Test Performed on : 12/10/2018 3:30:47 PM Test Reason : LIGHTHEADED Blood Pressure : / mmHG Vent. Rate : 060 BPM Atrial Rate : 060 BPM P-R Int : 228 ms QRS Dur : 074 ms QT Int : 410 ms P-R-T Axes : 114 006 014 degrees QTc Int : 410 ms Sinus rhythm. with 1st degree AV block. Otherwise normal ECG When compared with ECG of 20-APR-2016 20:16, MO interval has increased Vent. rate has decreased BY 42 BPM Unconfirmed Result
[2018-12-10 15:50] LABS: INR 1.16; PROTIME 14.9 Seconds (11.0-16.0)
[2018-12-10 15:51] LABS: PTT 27.8 Seconds (22.3-41.8)
[2018-12-10 16:02] LABS: ALB/GLOB RATIO 1.3; ALBUMIN 4.1 g/dL (3.5-5.0); CALCIUM 10.3 mg/dL (8.8-10.2); CREATININE 1.4 mg/dL (0.7-1.2); POTASSIUM 5.2 mmol/L (3.5-5.1); TOTAL BILIRUBIN 0.26 mg/dL (0.20-1.00); TOTAL PROTEIN 7.3 g/dL (6.3-8.3)
--- NOTE | 2018-12-10 16:13 | Diag Imaging Result Doc PS360 ---
EXAM: CT HEAD W/O CONTRAST INDICATION: stroke like symptoms TECHNIQUE: This exam was performed using automated exposure control, adjustment of mA or kV according to patient size, and/or use of iterative reconstruction technique. COMPARISON: 05/28/2016 FINDINGS: There is stable diffuse brain atrophy. There is a stable chronic lacunar infarct involving the caudate head on the right. There is no definite acute infarct given the limited sensitivity of CT versus MRI. There is no discrete intracranial mass, mass effect, or intracranial hemorrhage. The surrounding soft tissues and bony structures are essentially unremarkable. IMPRESSION: Stable diffuse brain atrophy. No definite acute intracranial pathology by CT. Electronically signed by Neil Moser 12/10/2018 4:10 PM
[2018-12-10 16:40] LABS: URINE SOURCE CLEAN CATCH
--- NOTE | 2018-12-10 16:40 | Diag Imaging Result Doc PS360 ---
EXAM: CHEST-PORTABLE HISTORY: stroke like symptoms TECHNIQUE: Chest single view COMPARISON: 12/08/2018 FINDINGS: The lungs are well expanded. The heart is not enlarged. The vessels are not distended. There are no infiltrates. No effusion identified. IMPRESSION: Negative exam. Electronically signed by Maciel 12/10/2018 4:38 PM
[2018-12-10 16:46] LABS: BILIRUBIN URINE NEGATIVE (NEGATIVE); BLOOD URINE NEGATIVE (NEGATIVE); COLOR ORANGE; GLUCOSE URINE NEGATIVE (NEGATIVE); KETONE URINE TRACE mg/dL (NEGATIVE); LEUKOCYTES URINE NEGATIVE (NEGATIVE); NITRITE URINE NEGATIVE (NEGATIVE); PH URINE 5.5; PROTEIN URINE 50 mg/dL (NEGATIVE); SP GRAVITY URINE 1.034; TURBIDITY URINE TURBID (CLEAR); UROBILINOGEN URINE 2 mg/dL (NORMAL)
[2018-12-10 16:48] LABS: UR EPITHELIAL CELLS <10 /HPF (<10); URINE BACTERIA NEGATIVE /HPF; URINE RBC <10 /HPF (<10); URINE WBC <10 /HPF (<10)
[2018-12-10 16:59] LABS: UR AMPHETAMINES QUAL NONE DETECTED (NONE DETECT); UR BARBITUATES QUAL NONE DETECTED (NONE DETECT); UR BENZODIAZEPIN QUAL PRESUMPTIVE POSITIVE (NONE DETECT); UR CANNABINOIDS QUAL NONE DETECTED (NONE DETECT); UR COCAINE QUAL NONE DETECTED (NONE DETECT); UR METHADONE QUAL NONE DETECTED (NONE DETECT); UR OPIATES QUAL NONE DETECTED (NONE DETECT); UR OXYCODONE QUAL NONE DETECTED (NONE DETECT); UR PCP QUAL NONE DETECTED (NONE DETECT)
--- NOTE | 2018-12-10 17:07 | EKG Report ---
Test Performed on : 12/10/2018 5:03:52 PM Test Reason : Stroke like symptoms Blood Pressure : / mmHG Vent. Rate : 056 BPM Atrial Rate : 056 BPM P-R Int : 224 ms QRS Dur : 084 ms QT Int : 426 ms P-R-T Axes : 038 015 014 degrees QTc Int : 411 ms Sinus bradycardia. with 1st degree AV block. Otherwise normal ECG When compared with ECG of 10-DEC-2018 15:30, (Unconfirmed) No significant change was found Unconfirmed Result
--- NOTE | 2018-12-10 17:16 | PROVIDER DOCUMENTATION ---
This chart was entered by Raven Crespo Scribe, acting as scribe for Clifford Hassan MD. HPI-General Adult - General Stated Complaint: LIGHT HEADED Time Seen by Provider: 12/10/18 15:19 Source: patient, family (), EMS Allergies/Adverse Reactions: Patient Allergies Allergy/AdvReac Type Severity Reaction Status Date / Time esomeprazole magnesium * Allergy Mild NAUSEA/VOMI Verified 12/10/18 15:43 [From Nexium] TING oxycodone HCl * Allergy Mild Unknown Verified 12/10/18 15:43 [From OxyContin] latex Allergy SWELLING Verified 12/10/18 15:43 Home Medications: Home Medication List Medication Instructions Recorded Confirmed Last Taken Type Alfuzosin HCl [Alfuzosin HCl ER] 10 mg PO HS 08/30/13 05/28/16 05/27/16 History Donepezil [Aricept] 5 mg PO QHS #0 tablet 09/02/13 05/28/16 05/27/16 Rx Diltiazem C.d. [Cardizem Cd] 120 mg PO DAILY 04/20/16 05/28/16 05/28/16 History LISINOpril [Prinivil] 10 mg PO DAILY 04/20/16 05/28/16 05/28/16 History Levothyroxine [Synthroid] 100 microgm PO DAILY 04/20/16 05/28/16 05/27/16 History Carbidopa/Levodopa [Sinemet 25/100] 2 each PO BID #120 tablet 04/27/16 05/28/16 05/28/16 Rx Clonazepam [Klonopin] 0.5 mg PO BID #60 tablet 06/05/16 Unknown Rx Divalproex [Depakote Sprinkle] 500 mg PO QHS #30 capsule 06/05/16 Unknown Rx Insulin Lispro Protamin/Lispro 15 unit SQ BID #0 06/05/16 Unknown Rx [Humalog Mix 50-50 Vial] Losartan [Cozaar] 25 mg PO DAILY #0 tablet 06/05/16 Unknown Rx Quetiapine [Seroquel] 50 mg PO QAM #30 tablet 06/05/16 Unknown Rx Quetiapine [Seroquel] 50 mg PO QHS #30 tablet 06/05/16 Unknown Rx Trazodone [Desyrel] 50 mg PO HS PRN PRN #5 tablet 06/05/16 Unknown Rx - History of Present Illness -Gen Adult Nature of Presenting Problems: 78 yowm presents to the ed with his via ems with multiple complaints. pt sts "every bit of my blood is in my brain and I need you to stick something up my peter to help me" pt sts he has had a fast heart and dizziness today so she gave him half of a pill for afib that belonged to her this morning. pt also sts he has only urinated 4x in 4 days. sts pt was recently dx on saturday with pleurisy and is currently on abx. pt on exam has rambling speech and is nontoxic in appearance Location of Pain/Injury: reports: head Pain Radiation: reports: no radiation Quality of Pain: reports: other ("swimming") Severity: reports: moderate Onset/Duration: reports: this morning Timing: reports: still present, intermittent Context/Activities at Onset: reports: light activity Modifying Factors: improves with: nothing Associated Symptoms: reports: dizziness, genitourinary problems (decreased urination). denies: back/neck pain, chest pain, fever/chills, headaches, nausea, shortness of breath, vomiting, weakness Similar Symptoms Previously?: Yes Recently seen or treated by another doctor?: Yes (seen pcp on saturday) Review of Systems - Adult - REVIEW OF SYSTEMS - ADULT ROS:: limited per condition Constitutional: denies: chills, fever Eyes: reports: no symptoms reported Ears, Nose, Mouth & Throat: reports: no symptoms reported Cardiovascular: denies: chest pain, palpitations Respiratory: denies: cough, shortness of breath, wheezing Gastrointestinal: denies: abdominal pain, diarrhea, nausea, vomiting Genitourinary: reports: see HPI, urinary retention Musculoskeletal: reports: no symptoms reported Integumentary: reports: no symptoms reported Neurological: reports: see HPI, dizziness/vertigo, tremors. denies: ataxia, loss of balance, seizure, syncope Psychiatric: reports: no symptoms reported Endocrine: reports: no symptoms reported Hematologic/Lymphatic: reports: no symptoms reported Allergic/Immunologic: reports: no symptoms reported All Other Systems: Reviewed and Negative Past History - Adult - PAST MEDICAL HISTORY-ADULT Review of Records: reports: Old Records Reviewed, Nursing Assessment Review, Medications Reviewed, Social history reviewed & non-contributory. Major Childhood Illnesses: reports: denies history Cardiovascular: reports: HTN, hyperlipidemia Respiratory: reports: denies history Gastrointestinal: reports: denies history Genitourinary: reports: denies history Musculoskeletal: reports: denies history Neurological: reports: CVA, Parkinson's Psychiatric: reports: anxiety Endocrine/Immune: reports: Diabetes Other Conditions: reports: denies history - PRIOR SURGERIES/PROCEDURES Surgical/Procedure History: reports: recent surgery, hernia repair, joint replacement, other (TURP) - IMMUNIZATION STATUS Childhood Immunizations: See Nurse Assessment Flu Vaccine: See Nurse Assessment - FAMILY HISTORY Family History: reviewed, not pertinent - SOCIAL HISTORY Smoking: denies Substance Use: denies Living Situation: family Physical Exam-General - PHYSICAL EXAM-ADULT Initial Vital Signs Reviewed: Yes - CONSTITUTIONAL General Appearance: appears well, alert, no apparent distress, obese - EYES Eyes: PERRL/EOMI, pink conjunctivae - HEAD, EARS, NOSE, MOUTH & THROAT HENMT: moist mucous membranes, other (no teeth) - NECK Neck: non-tender, full range of motion, normal inspection - RESPIRATORY Respiratory: chest non-tender, lungs clear, normal breath sounds - CARDIOVASCULAR Cardiovascular: normal peripheral pulses, regular rate, rhythm - CHEST (BREASTS) Chest/Breast: deferred - GASTROINTESTINAL (ABDOMEN) Abdominal Exam: normal bowel sounds, non tender, soft - GENITOURINARY Male Genitalia: deferred Rectal Exam: deferred Hemoccult Exam: deferred - LYMPHATIC Lymphatic: no adenopathy - MUSCULOSKELETAL Extremity: normal capillary refill, pelvis stable, other (tremor noted chronic) - SKIN Integumentary: normal color, normal turgor, warm/dry - NEUROLOGIC Neurologic: grossly normal - PSYCHIATRIC Psych/Mental Status: normal mood/affect, normal thought content, normal thought process, oriented x 3 Progress - PLAN OF CARE/RESULTS Progress/Plan/Lab Results: Laboratory Results - last 24 hr 12/10/18 15:10 POC Glucose 77 D Orders Category Date Time Status Cardiac Monitoring DIRECTED Care 12/10/18 15:25 Active Finger Stick Blood Sugar (ED) DIRECTED Care 12/10/18 15:00 Completed Finger Stick Blood Sugar (ED) DIRECTED Care 12/10/18 15:25 Active Misc. NRSG Communication Order DIRECTED Care 12/10/18 15:25 Active Orthostatic Vital Signs NOW Care 12/10/18 15:00 Active Saline Loc NOW Care 12/10/18 15:00 Active Saline Loc NOW Care 12/10/18 15:25 Active CHEST-PORTABLE [RAD] Stat Exams 12/10/18 15:[address] HEAD W/O CONTRAST [CT] Stat Exams 12/10/18 15:25 Ordered CBC WITH ELECTRONIC DIFF [HEME] Stat Lab 12/10/18 15:25 Uncollected COMPREHENSIVE METABOLIC PANEL [CHEM] Stat Lab 12/10/18 15:25 Uncollected PROTIME WITH INR [COAG] Stat Lab 12/10/18 15:25 Uncollected PTT [COAG] Stat Lab 12/10/18 15:25 Uncollected TROPONIN T Stat Lab 12/10/18 15:25 Uncollected URINALYSIS W/POSS RFLX CULT [URINALYSIS] Stat Lab 12/10/18 15:25 Uncollected URINE DRUG SCREEN Stat Lab 12/10/18 15:25 Uncollected 0.9% Sodium Chloride Inj [Ns] 1,000 ml Med 12/10/18 15:25 Ordered IV 150 mls/hr EKG [EKG] Stat Ther 12/10/18 15:00 Ordered EKG [EKG] Stat Ther 12/10/18 15:25 Ordered Result Diagrams: 12/10/18 15:16 12/10/18 15:16 - REASSESSMENT Reassessment #1 Time Reassessed: 16:43 Status: unchanged - EKG 1 Time of EKG reading by physician:: 15:30 EKG Read and Signed by:: Clifford Hassan EKG Interpretation (*Must complete 3 of following elements*): Normal Rate: 60 Rhythm: sinus rhythm with 1st degree av block [place]: normal QRS: normal [place] Interval: normal ST Wave: normal - XRAY 1 XRAY: Bilateral XRAY Study: Chest Impression: See EMR Report (EXAM: CHEST-PORTABLE HISTORY: stroke like symptoms TECHNIQUE: Chest single view COMPARISON: 12/08/2018 FINDINGS: The lungs are well expanded. The heart is not enlarged. The vessels are not distended. There are no infiltrates. No effusion identified. IMPRESSION: Negative exam. Electronically signed by Maciel 12/10/2018 4:38 PM 12/10/18 [id number] Interpreting Physician: Maciel Sun MD Dictated Date/Time: 12/10/18 1637 cc: Clifford Hassan MD; Chandrika Salgado MD) - CT/MRI 1 CT Study: Head Impression: See EMR Report (EXAM: CT HEAD W/O CONTRAST INDICATION: stroke like symptoms TECHNIQUE: This exam was performed using automated exposure control, adjustment of mA or kV according to patient size, and/or use of iterative reconstruction technique. COMPARISON: 05/28/2016 FINDINGS: There is stable diffuse brain atrophy. There is a stable chronic lacunar infarct involving the caudate head on the right. There is no definite acute infarct given the limited sensitivity of CT versus MRI. There is no discrete intracranial mass, mass effect, or intracranial hemorrhage. The surrounding soft tissues and bony structures are essentially unremarkable. IMPRESSION: Stable diffuse brain atrophy. No definite acute intracranial pathology by CT. Electronically signed by Neil Moser 12/10/2018 4:10 PM 12/10/18 1610 Interpreting Physician: Neil Moser MD Dictated Date/Time: 12/10/18 1605 cc: Clifford Hassan MD; Chandrika Salgado MD) Departure - Departure Date of Disposition Decision: 12/10/18 Time of Disposition Decision: 17:16 DIAGNOSIS: Weakness Disposition: ADMITTED INPATIENT 09 Certified Medical Emergency: Emergent Condition: Stable Referrals and Follow-Ups: Chandrika Salgado MD [Primary Care Provider] - - Critical Care Note This patient required my direct & personal management of CC.: No Attestation - Physician/ [place] Attestation Patient care was provided by Advanced Practice Provider:: No The physician spent face to face time with patient:: Yes Advanced Practice Provider documentation review:: Supervising physician onsite and consulted in the evaluation and care of this patient. The physician did have a face to face encounter with the patient. This chart was documented by the indicated scribe, (Raven Crespo Scribe) and accurately reflects the services I performed and decisions made by me, Clifford Hassan MD, as attested by the provider's signature.
[2018-12-10] MEDS ORDERED: SODIUM CHLORIDE 0.9% INJ PRN (17:57)
[2018-12-10] MEDS ORDERED: PHENERGAN IV PRN (17:57)
[2018-12-10] MEDS ORDERED: DESYREL PO PRN (17:57)
[2018-12-10] MEDS: LOVENOX SUBQ SCH (18:37)
[2018-12-10] MEDS: ARICEPT PO SCH (20:30)
[2018-12-10] MEDS: DEPAKOTE ER PO SCH (20:30)
[2018-12-10] MEDS: UROXATRAL PO SCH (20:30)
[2018-12-10] MEDS: SINEMET 25/100 PO SCH (20:30)
[2018-12-10] MEDS: TYLENOL PO PRN (20:30)
[2018-12-10] MEDS: SEROQUEL PO SCH (20:30)
[2018-12-10] MEDS: HUMALOG SUBQ SCH (21:20)
[2018-12-10] MEDS: NON-FORMULARY BULK MED SUBQ SCH (21:21)
[2018-12-11] MEDS: LOVENOX SUBQ SCH (06:18)
[2018-12-11] MEDS: HUMALOG SUBQ SCH ×4 (06:19→21:49)
--- NOTE | 2018-12-11 08:53 | PROGRESS NOTE ---
DATE: 12/11/2018 SUBJECTIVE: Mr. Kinsey was admitted to [facility] with an apparent TIA. Mr. Kinsye reported that he has had a transient loss of vision in the left eye. These episodes have occurred 3 or 4 times over the past month. He did not have any other neurologic symptoms such as slurred speech, aphasia, or difficulty moving his extremities. His initial CT scan of the brain demonstrated chronic white matter changes without any acute ischemic findings. He has remained in normal sinus rhythm throughout the evening. Blood pressure remains stable. His also reported that he had been with complaint of chest pain, palpitations, and shortness of breath. She reported that at one point prior to arrival to the ER that his heart rate had been in the 140s and his O2 sats had dropped into the 70s. On arrival to the ER, his chest x-ray demonstrated clear lung lizarraga. There was no evidence of infiltrate or effusions. He did not have any persistent edema or palpable cords in the lower extremities. His D-dimer was elevated at 2.36. He is breathing comfortably. O2 saturations have been in the range of 95% to 97% on room air. OBJECTIVE: Temperature 97.4 degrees, pulse 72, respirations 22, blood pressure 155/76, and O2 saturation 98% on room air.CV: Regular rate and rhythm. Lungs: Clear. Abdomen: Soft and nontender with active bowel sounds. ASSESSMENT AND PLAN: 1. TIA. We will continue telemetry and neuro checks q.4 hours. I will continue Lovenox 1 mg/kg subcutaneously b.i.d. We will check an MRI of the brain without contrast as well as a carotid ultrasound today. 2. Dyspnea. His chest x-ray is clear. There is no evidence of pneumonia or congestive heart failure. Cardiac enzymes are negative. There has been no evidence of myocardial ischemia. I do not appreciate any palpable cords or significant swelling of the lower extremities. Certainly, the D-dimer could be elevated in the setting of renal insufficiency given the palpitations and episode of hypoxia prior to arrival to the ER, I will arrange for a V/Q scan to look for evidence of pulmonary thromboemboli. cc: Jennie Salgado MD
[2018-12-11] MEDS ORDERED: KLONOPIN PO SCH (09:00)
[2018-12-11] MEDS: PRINIVIL PO SCH (09:01)
[2018-12-11] MEDS: CARDIZEM CD PO SCH (09:01)
[2018-12-11] MEDS: SINEMET 25/100 PO SCH ×2 (09:01→20:03)
[2018-12-11] MEDS: KLONOPIN PO SCH ×3 (09:01→20:05)
[2018-12-11] MEDS: NON-FORMULARY BULK MED SUBQ SCH ×2 (09:02→21:41)
[2018-12-11] MEDS: SEROQUEL PO SCH ×2 (09:02→20:05)
[2018-12-11] MEDS: SYNTHROID PO SCH (09:02)
[2018-12-11 09:22] LABS: CREATININE 1.2 mg/dL (0.7-1.2); POTASSIUM 4.4 mmol/L (3.5-5.1)
--- NOTE | 2018-12-11 10:54 | Diag Imaging Result Doc PS360 ---
EXAM: MRI BRAIN W/O CONTRAST HISTORY: TIA TECHNIQUE: MRI brain without contrast. Axial, sagittal, and coronal images obtained in multiple sequences COMPARISON: None. FINDINGS: There is prominent atrophy and mild microvascular ischemic changes. No recent infarct. No hydrocephalus. No mass or midline shift. No epidural or subdural fluid collection. Normal orbits. No sinus opacification. IMPRESSION: Atrophy with chronic microvascular ischemic changes. Electronically signed by Maciel 12/11/2018 10:52 AM
--- NOTE | 2018-12-11 11:54 | Diag Imaging Result Doc PS360 ---
EXAM: CT ANGIOGRM PULMONARY ARTERIES HISTORY: dyspnea, tachycardia, elevate ddimer TECHNIQUE: CT chest with intravenous contrast. Pulmonary arterial protocol with MIP images. COMPARISON: None. FINDINGS: There are prominent left hilar and aorticopulmonary window lymph nodes. The largest left hilar lymph node measures 2.3 cm and the largest mediastinal node measures 2.4 cm. Soft tissue prominence posteriorly in the left upper lobe measuring 12 x 20 x 25 mm. This is not seen on the recent plain films although it was likely present but obscured due to the orientation of the lesion. Trace pleural fluid. No cardiomegaly. No aortic aneurysm or dissection. Prominent atherosclerosis. Normal opacification of the pulmonary arteries and their proximal branches. Left lower lobe calcified granuloma. Possible hypodense lesions in the liver. IMPRESSION: Irregular left upper lobe lesion with enlarged mediastinal and hilar lymph nodes suspicious for malignancy. This exam was performed using automated exposure control, adjustment of mA or kV according to patient size, and/or use of iterative reconstruction technique. Electronically signed by Maciel 12/11/2018 11:52 AM
[2018-12-11] MEDS: TYLENOL PO PRN (12:21)
[2018-12-11] MEDS: ULTRAM PO PRN ×2 (13:19→20:04)
--- NOTE | 2018-12-11 13:38 | PROGRESS NOTE ---
DATE: 12/11/2018 SUBJECTIVE: Mr. Kinsey was admitted to [facility] for evaluation of a TIA. His initial CT scan of the brain demonstrated chronic white matter changes. An MRI of the brain demonstrated generalized atrophy and chronic white matter changes. He has had no further neurologic events. He is still complaining of mild dyspnea and right-sided pleuritic chest pain. Because of the tachycardia, episode of hypoxia at home and persistent dyspnea with an elevated D- dimer, I did arrange for a pulmonary angiogram. There was no evidence of pulmonary emboli. He did have a soft tissue mass in the left upper lobe measuring 12 x 20 x 25 mm. He did have prominent left hilar and aorticopulmonary window lymph nodes. He does have a history of mild renal insufficiency. His creatinine dropped from 1.4 to 1.2 with fluids today. He did have a contrast load. OBJECTIVE: Vital signs: He is afebrile. Pulse 63, respirations 18, blood pressure 121/62. Cardiovascular: Regular rate and rhythm with a 2/6 systolic ejection murmur. Lungs: Clear. Abdomen: Soft, nontender, with active bowel sounds. ASSESSMENT AND PLAN: Left upper lobe lung mass. Given his long history of smoking, I am concerned about the possibility of a lung malignancy. I will stop the Lovenox. I will consult Dr. Blackwell to see him. I am hopeful that we can perform either a CT-guided biopsy or he can have bronchoscopy with a biopsy. Given the clinical developments, I anticipate that the patient will be in the hospital for longer than 2 midnights and I will therefore place him in inpatient status. cc: Jennie Salgado MD
--- NOTE | 2018-12-11 14:08 | HISTORY AND PHYSICAL ---
CHIEF COMPLAINT: Visual changes. HISTORY OF PRESENT ILLNESS: Mr. Julius Kinsey is a 78-year-old gentleman who is well known to me. He has a history of multiple medical problems including essential hypertension, gastroesophageal reflux disease, mixed hyperlipidemia, hypothyroidism, diabetes mellitus, epilepsy, Alzheimer's disease and Parkinson's disease. He presented to the ER with TIA type symptoms. Over the past several weeks, he has had episodes in which he lost vision in his left eye. He reported that he could not see out of that eye. He never had any other neurologic deficits such as stammering or unilateral weakness. His symptoms would last less than a minute and resolved spontaneously. He denied any significant headaches or palpitations with these episodes. His initial CT scan of the brain demonstrated diffuse atrophy and chronic white matter changes. Mrs. Kinsey also reported that he has been with complaint of dyspnea and persistent right- sided pleuritic chest wall pain. He had a chest x-ray earlier in the week that demonstrated no pneumonia. We felt that he had a bronchitis. We treated him with a Z-Rosendo and Medrol Dosepak. She reported that prior to calling the ambulance that his heart rate was in the 140's, and that his oxygen level dropped into the 70s. On arrival to the ER, he was in normal sinus rhythm. O2 saturations were in the range of 95% to 98% on room air. His initial chest x-ray was unremarkable. PAST MEDICAL HISTORY: Essential hypertension, gastroesophageal reflux disease, mixed hyperlipidemia, hypothyroidism, type 2 insulin-dependent diabetes mellitus, osteoarthritis, seizures Alzheimer's dementia, and Parkinson's disease. PAST SURGICAL HISTORY: Bilateral cataract surgery, tonsillectomy, umbilical hernia repair and TURP. ALLERGIES: Nexium and OxyContin. FAMILY HISTORY: His father at the age of 79. He had hypertension and stroke. His mother at age 78. He had hypertension as well as ischemic heart disease. SOCIAL HISTORY: He is a former smoker. He does not consume alcoholic beverages. He is and lives with his spouse. REVIEW OF SYSTEMS: He denies any recent weight gain or weight loss.HEENT: He wears glasses. He is hard of hearing. CV: He has had chest pain and palpitations. Pulmonary: See HPI. GI: No reflux dysphagia , melena, hematochezia, change in bowel habits, or rectal bleeding. Endocrine: No polyuria. No polydipsia. No episodes of symptomatic hypoglycemia. : Occasional episodes of nocturia. Urinary stream is stronger. He does not have postvoid dribbling. Musculoskeletal: He has joint pain. Neurologic: He has a history of Parkinson's. ASSESSMENT AND PLAN: This is a chronically ill-appearing 78-year-old gentleman in no apparent distress. He is afebrile. Pulse 68, respirations 18, and BP 156/75. O2 saturation 98% on room air.HEENT: Fundi with arteriolar wall thickening. Pupils equal, round, and reactive to light. Extraocular eye movements intact. TMs without bullae. Neck: Supple. No masses, JVD or bruits. CV: Regular rate and rhythm with a 2/6 systolic ejection murmur at the left sternal margin. Lungs: Distant breath sounds with increased period of expiration. No wheezing or rales were noted. Abdomen: Soft and nontender with active bowel sounds. Extremities: Without edema. No palpable cords were noted. Genitourinary and Rectal: Exams deferred. Neurologic: He is oriented to name and place. He follows simple commands. Cranial nerves 2-12 intact grossly. He does have a resting tremor. He has minimal cogwheel rigidity. Gait was not assessed. LABORATORY: Various laboratory studies were obtained. A CBC demonstrated a white count of 10.6, hemoglobin 12.2, hematocrit 37.9, and a platelet count of 273,000. BMP demonstrated the following. Sodium 138, potassium 5.2, chloride 97, BUN 29, creatinine 1.4, and glucose 305. ASSESSMENT AND PLAN: 1. TIA. He has multiple risk factors for cerebrovascular events. We will admit him to [facility] to a telemetry bed to rule out arrhythmias. I will check an ultrasound of the carotids as well as an MRI of the brain in the morning. He will be given Lovenox 1 mg/kg subcutaneously b.i.d. I would like to try to keep his systolic blood pressures in the 140s and 150s to reduce the risk of increasing the watershed area for potential stroke. We will perform neuro checks q.4 hours x24 hours. 2. Dyspnea. He has no evidence of pneumonia. There is no evidence of congestive heart failure. His D-dimer is elevated. I will arrange for given the elevated D-dimer, hypoxia and tachycardia. I will check a CT pulmonary angiogram to make sure he has not had pulmonary thromboemboli. 3. Type 2 insulin-dependent diabetes mellitus. We will place him on an 1800 calorie ADA diet, pattern sugars, Humulin R sliding scale, and resume his regular home medicines. 4. End of life. I have spoken to his Mrs. Remedios Kinsey. She has stated that in the event of a cardiopulmonary arrest that no heroic measures should be undertaken. A No Code Blue Level 1 has been established. 5. Given his clinical presentation and comorbid conditions, I believe that admission to the hospital for further evaluation and management is reasonable. At this point in time, I anticipate that he will be in the hospital for only one midnight, and I will therefore place him in outpatient status with observation services. cc: Jennie Salgado MD
[2018-12-11] MEDS ORDERED: FLEET MINERAL OIL ENEMA PR ONE (17:01)
[2018-12-11] MEDS ORDERED: NS 1,000 ML IV SCH (17:15)
[2018-12-11] MEDS: DEPAKOTE ER PO SCH (20:03)
[2018-12-11] MEDS: ARICEPT PO SCH (20:03)
[2018-12-11] MEDS: UROXATRAL PO SCH (20:05)
--- NOTE | 2018-12-11 22:16 | PULMONOLOGY CONSULTATION ---
DATE: 12/11/2018 REQUESTING PHYSICIAN: Dr. Nestor Salgado. REASON FOR CONSULTATION: Left lung mass. HISTORY OF PRESENT ILLNESS: Mr. Kinsey is a 78-year-old male with a greater than 04-[id number]-bwet history for tobacco (nonsmoker x10 years), who presented to the emergency room yesterday afternoon with multiple different complaints. The patient has Parkinson's disease with a component of dementia. See the nature of presenting illness in the emergency room. The patient does report onset of pleurisy/pain over the last 5 weeks. He reports pain starts in his neck, goes down both sides of his spine and radiates into his chest, and becomes unbearable with any bouncing. The patient had a chest x-ray in the emergency room with stroke-like symptoms and no specific pathology was identified. The patient's D-dimer was elevated and he underwent a CT pulmonary angiogram, and he has an oblong nodule in the left upper lobe with extensive hilar and AP window/subaortic adenopathy. There may be lesions in the liver as well. Laboratories were obtained and patient has a marked increase in his CEA level at 137. PAST MEDICAL HISTORY PROBLEM LIST: 1. Parkinson's disease. 2. Dementia. 3. Gastroesophageal reflux disease. 4. Type 2 diabetes mellitus. 5. Dyslipidemia. 6. Hypothyroidism. 7. Status post TURP. 8. Status post tonsillectomy. 9. History of bilateral cataract surgery. SOCIAL HISTORY: The patient reports he has not smoked for the last 10 years. He is . FAMILY HISTORY: Notable for hypertension, heart disease and coronary artery disease, and strokes. REVIEW OF SYSTEMS: Difficult. The patient has a nonlinear thinking pattern. He does report having a cyst on his anterior chest wall, which required drainage. He has had some difficulty with urination. He has the pain in the thorax as outlined in the HPI. He has a nonspecific cough. PHYSICAL EXAMINATION: General: A well-developed, well-nourished male resting comfortably and in no distress. BP 141/71, heart rate 57, respiratory rate 15, oxygen saturation 100% on 2 L per nasal cannula. HEENT: Pupils are equal and reactive. Oropharynx appears clear. Neck: Supple. Chest: Occasional wheezing on forced exhalation. Cardiac: S1-S2. Abdomen: Soft. Extremities: Without edema. LABORATORY AND DIAGNOSTIC DATA: CT scan, as per HPI. PT is 14.9, INR is 1.16. Sodium 138, potassium 4.4, chloride 98, bicarbonate 28, BUN 32, creatinine 1.26. Carcinoembryonic antigen 137. IMPRESSION: A 78-year-old with prior tobacco history, dementia, Parkinson's disease, pulmonary nodule, left hilar adenopathy, mediastinal adenopathy, significant elevation in his CEA level. Current radiographic presentation is consistent with at least a stage III lung cancer. He does not appear to be a surgical candidate. RECOMMENDATIONS: 1. Obtain bone scan given his extensive reports of bone pain and the etiology is not completely identified on CT scan. 2. Proceed with CT-guided biopsy of the pulmonary nodule. 3. Recommend oncology evaluation, although he may be a poor treatment candidate. 4. Additional recommendations pending hospital course. I attempted to call his , Ms. Remedios Kinsey, on her cellphone ([phone]), but it only went to voicemail. I did leave a message with her. cc: MD Jennie Melo MD
--- NOTE | 2018-12-12 06:53 | PROGRESS NOTE ---
DATE: 12/12/2018 SUBJECTIVE: Mr. Kinsey is complaining of mild shortness of breath and a nonproductive cough. O2 saturations are ranging from 98 to 100 percent on 2 L of oxygen. He has occasional wheezing with forced expiration. He has had no gross hemoptysis. A CT pulmonary angiogram demonstrated a left upper lobe nodule. Blood pressure remains well controlled. Systolic blood pressures are in the 130s and 140s, whereas his diastolic blood pressures range from 55 to 70. He denies any chest pain, palpitations, or anginal equivalents. OBJECTIVE: Vital Signs: Temperature 97.9 degrees, pulse 54, respirations 12, BP 110/56. Cardiovascular: Regular rate and rhythm. Lungs: Occasional end-expiratory wheezing with forced expiration. Abdomen: Soft, nontender, with active bowel sounds. ASSESSMENT AND PLAN: 1. Left lung mass. He does have hilar adenopathy. A CEA is grossly elevated at 137. We will proceed with a CT-guided biopsy today. I am very concerned that this represents an underlying malignancy. We will perform a CT scan of the abdomen and pelvis with and without contrast as well as a bone scan to see whether or not there are any distal metastases. 2. Probable chronic obstructive pulmonary disease. We will continue supplemental O2, and utilize DuoNeb nebulizer treatments 4 times daily. 3. Hypertension. Blood pressure is stable. We will continue him on his current regimen of medications. cc: Jennie Salgado MD
[2018-12-12] MEDS: HUMALOG SUBQ SCH ×4 (07:14→20:48)
[2018-12-12 08:06] LABS: AGAP 10; ALB/GLOB RATIO 1.1; ALBUMIN 3.4 g/dL (3.5-5.0); ALKALINE PHOSPHATASE 100 U/L (32-122); BUN 25 mg/dL (8-22); CALCIUM 10.1 mg/dL (8.8-10.2); CHLORIDE 100 mmol/L (98-107); COSMO 284; CREATININE 1.2 mg/dL (0.7-1.2); ESTIMATED GFR 59; GLUCOSE 99 mg/dL (70-104); GOT 28 U/L (10-34); GPT < 5 U/L (10-44); POTASSIUM 4.6 mmol/L (3.5-5.1); SODIUM 140 mmol/L (136-145); TCO2 30 mmol/L (25-35); TOTAL PROTEIN 6.5 g/dL (6.3-8.3)
[2018-12-12 08:09] LABS: INR 1.05; PROTIME 13.9 Seconds (11.0-16.0); PTT 28.2 Seconds (22.3-41.8)
[2018-12-12] MEDS: DUONEB (A & A) INH SCH ×3 (08:36→21:15)
[2018-12-12] MEDS: KLONOPIN PO SCH ×3 (09:26→20:38)
[2018-12-12] MEDS: SYNTHROID PO SCH (09:26)
[2018-12-12] MEDS: CARDIZEM CD PO SCH (09:26)
[2018-12-12] MEDS: SINEMET 25/100 PO SCH ×2 (09:26→20:47)
[2018-12-12] MEDS: PRINIVIL PO SCH (09:26)
[2018-12-12] MEDS: NON-FORMULARY BULK MED SUBQ SCH ×2 (09:34→20:39)
[2018-12-12] MEDS: SEROQUEL PO SCH ×2 (09:34→20:37)
[2018-12-12] MEDS: ULTRAM PO PRN (12:09)
--- NOTE | 2018-12-12 13:47 | Diag Imaging Result Doc PS360 ---
EXAM: CHEST-2 VIEWS INDICATION: POST BIOPSY INS/EXP TECHNIQUE: 2 views COMPARISON: 12/10/2018 FINDINGS: On the expiration image, there is a faint linear lucency at the apex of the left lung. Although questionable, this could represent a very small pneumothorax. If so, it appears to be less than 10% of the left hemithorax. Otherwise, the chest is grossly stable as compared to the recent prior study with no new consolidations identified. Cardiac silhouette is stable. IMPRESSION: Possible tiny left apical pneumothorax status post left lung biopsy. A follow-up chest radiograph in four hours has been ordered. Electronically signed by Neil Moser 12/12/2018 1:44 PM
--- NOTE | 2018-12-12 14:19 | Diag Imaging Result Doc PS360 ---
EXAM: CT ABD/PELVIS W/PO AND IV CON INDICATION: staging of lung cancer and pelvic pain TECHNIQUE: This exam was performed using automated exposure control, adjustment of mA or kV according to patient size, and/or use of iterative reconstruction technique. COMPARISON: Unenhanced CT dated 04/20/2016 FINDINGS: There is subsegmental atelectasis at both lung bases. There are innumerable low dense small nodules throughout the liver parenchyma that are suspicious for metastatic foci. For reference, one of the larger nodules is in the left hepatic lobe on image 17 of series 4 measuring up to 2.4 x 2.0 cm axially. The gallbladder, spleen, pancreas, and adrenal glands are essentially unremarkable. There are a couple of tiny cystic appearing foci involving the right kidney. Kidneys are unremarkable, otherwise. The urinary bladder is unremarkable. There are calcifications noted incidentally involving the left seminal vesicle. The appendix is normal. There is a surgical staple line associated with the stomach. No focal bowel wall thickening or bowel obstruction is identified. The remainder of the GI tract is essentially unremarkable. There are ventral marginal osteophytes at several of the lower thoracic spine levels. At T9 and T10 on the right there is increased lucency at the vertebral bodies. It is nonspecific. This may be related to degenerative arthropathy with Schmorl's node formation. It would be difficult to completely exclude lytic metastases, however. Moreover, at the anterior aspect of the ilium on the left there is some irregularity. Metastatic disease cannot be excluded here either. Correlation with at least nuclear medicine bone scan is suggested. IMPRESSION: 1.Innumerable small hepatic lesions that are suspicious for metastatic foci as described. 2.Irregularity involving the anterior aspect of the ilium on the left and increased lucency at the right side of the T9 and T10 vertebral bodies. Please see above discussion. Electronically signed by Neil Moser 12/12/2018 2:17 PM
--- NOTE | 2018-12-12 14:23 | Diag Imaging Result Doc PS360 ---
EXAM: CT GUIDED BIOPSY LUNG INDICATION: lung mass with elevated CEA TECHNIQUE: COMPARISON: 12/11/2018 FINDINGS: Risks, benefits, and alternatives were discussed with the patient and informed consent was obtained. Patient was placed in a right lateral decubitus position and was prepped and draped in sterile fashion. Local anesthesia was achieved with 1% lidocaine solution. Using CT guidance, an 18-gauge coaxial biopsy needle system was used to obtain three 1.3 cm core biopsies from the left upper lobe lung mass seen on a recent CT. Postprocedural radiograph showed a possible tiny left pneumothorax. If so, it is less than 10% of the left hemithorax. There were no other known complications. IMPRESSION: Technically successful CT-guided left upper lobe lung mass biopsy complicated by a possible tiny left pneumothorax. A follow-up chest radiograph in four hours will be performed to reassess. Electronically signed by Neil Moser 12/12/2018 2:21 PM
[2018-12-12] MEDS ORDERED: DULCOLAX PR PRN (14:26)
[2018-12-12] MEDS: DEMEROL IV PRN ×2 (14:49→20:38)
--- NOTE | 2018-12-12 15:22 | Diag Imaging Result Doc PS360 ---
EXAM: BONE SCAN, TOTAL BODY INDICATION: lung mass and bone pain TECHNIQUE: 29.7 mCi of technetium 99 MDP was administered intravenously and images of the whole body were obtained in usual fashion. COMPARISON: No prior nuclear medicine bone scan is available for comparison. FINDINGS: There is mild increased uptake in a degenerative pattern involving the knees, feet, shoulders, elbows. There is abnormal increased uptake at the anterior rib cage on the right and the left. On the left, this appears to correspond to expansile lytic lesions in the third and sixth ribs that can be seen on a prior CTA of the chest dated 12/11/2018. On the right, the increased uptake probably corresponds to the very subtle sclerosis at the anterior aspect of the sixth rib that can be seen on the prior CT. There is focal increased uptake at the anterior aspect of the ilium on the left corresponding to cortical irregularity seen on a CT of the abdomen and pelvis performed earlier today. There is mild sternal increased uptake inferiorly on the right that probably corresponds to degenerative arthropathy at the chondrosternal interface. However, the lucencies involving the T9 and T10 vertebral bodies seen on the prior abdominal CT could account for this increased uptake as well. IMPRESSION: 1.Increased uptake associated with a few ribs anteriorly on the right and the left as well as the anterior aspect of the left ilium consistent with metastatic foci. 2.Mild increased uptake in the region of the lower sternum on the right. This could be degenerative at the costochondral interfaces. However, the uptake could be associated with the lucent vertebral bodies seen on the abdominal CT performed earlier today, which would be near the same level. Electronically signed by Neil Moser 12/12/2018 3:20 PM
--- NOTE | 2018-12-12 18:19 | Diag Imaging Result Doc PS360 ---
EXAM: CHEST-2 VIEWS INDICATION: post CT biopsy TECHNIQUE: 2 views COMPARISON: 12/12/2018 FINDINGS: On the current study, there is no evidence of pneumothorax. The questionable pneumothorax seen on the previous chest radiograph was probably an artifact or it has resolved. Inspiration is suboptimal. There is increased atelectasis at both lung bases as compared to the previous study. The chest is stable, otherwise. IMPRESSION: 1.No evidence of pneumothorax on the current study. Please see above discussion. 2.Mild bibasilar subsegmental atelectasis. Electronically signed by Neil Moser 12/12/2018 6:16 PM
[2018-12-12] MEDS: UROXATRAL PO SCH (20:37)
[2018-12-12] MEDS: DEPAKOTE ER PO SCH (20:37)
[2018-12-12] MEDS: ARICEPT PO SCH (20:38)
[2018-12-13] MEDS: DUONEB (A & A) INH SCH ×4 (03:31→21:17)
[2018-12-13] MEDS: HUMALOG SUBQ SCH ×4 (06:00→20:37)
[2018-12-13] MEDS: PRINIVIL PO SCH (09:00)
[2018-12-13] MEDS: CARDIZEM CD PO SCH (09:00)
[2018-12-13] MEDS: KLONOPIN PO SCH ×3 (09:00→20:26)
[2018-12-13] MEDS: SINEMET 25/100 PO SCH ×2 (09:00→20:26)
[2018-12-13] MEDS: NON-FORMULARY BULK MED SUBQ SCH ×2 (09:01→20:28)
[2018-12-13] MEDS: SYNTHROID PO SCH (09:01)
[2018-12-13] MEDS: SEROQUEL PO SCH ×2 (09:01→20:26)
--- NOTE | 2018-12-13 10:02 | PROGRESS NOTE ---
DATE: 12/13/2018 SUBJECTIVE: Mr. Kinsey says he is feeling a little better. His breathing is a little better. He says he still does not have much appetite. He did have a bowel movement yesterday and he says he has been constipated for a while. OBJECTIVE: Vital signs: He remains afebrile, temperature 97.6 degrees, pulse 64, respirations 16, blood pressure 101/52. HEENT: Pupils are equal round. Lungs: Clear in all lung lizarraga. Cardiovascular: Regular rate without murmur or S3. Abdomen: Soft. Skin is warm and dry. IMAGING: Chest x-ray this morning appears to be clear. could appreciate cardiomegaly. cc: MD Jennie Angel MD MTDD
[2018-12-13] MEDS: DEMEROL IV PRN ×2 (10:40→20:26)
--- NOTE | 2018-12-13 10:54 | HEMO/ONC CONSULTATION ---
DATE: 12/13/2018 REASON FOR CONSULTATION: Left lung mass. HISTORY OF PRESENT ILLNESS: Mr. Kinsey is a 78-year-old male with a 50+ pack year history of smoking. He states he has not smoked for 10 years. He came to the emergency room last week with TIA type symptoms. He states that he had several episodes in which he had lost vision in his left eye. These episodes lasted several minutes and were not accompanied by any other neurological deficits. He denies headaches or palpitations with these episodes. He also complains of dyspnea and persistent right-sided pleuritic chest wall pain. He was screened for pneumonia, which was negative and it was thought to be bronchitis. He was initially treated per his PCP with a Z-Rosendo and a Medrol Dosepak. An ambulance was called for the patient at home and it was found his heart rate was in the 140s and his O2 saturation was in the 70s. In the ER, his O2 saturations were 95 to 98 percent on room air, and his initial chest x-ray was unremarkable. The patient had a D-dimer that was elevated, and therefore he underwent a CT pulmonary angiogram. This revealed an oblong nodule of the left upper lobe with extensive hilar and AP window/subaortic adenopathy, and the possibility of lesions in the liver as well. The patient's CEA was 137. He had a CT guided lung biopsy performed. Presently awaiting results. PAST MEDICAL HISTORY: Parkinson disease, dementia, gastroesophageal reflux disease, type 2 diabetes mellitus, dyslipidemia, hypothyroidism. PAST SURGICAL HISTORY: Status post TURP, status post tonsillectomy, history of bilateral cataract surgery, umbilical hernia repair. ALLERGIES: Nexium and OxyContin. HOME MEDICATIONS: 1. Alfuzosin. 2. Carbidopa/levodopa. 3. Klonopin. 4. Cardizem CD. 5. Depakote ER. 6. Aricept. 7. Humalog mix 50/50. 8. Synthroid. 9. Prinivil. 10. Seroquel. 11. Trazodone. SOCIAL HISTORY: He is a former smoker, 50+ pack years, 10 years nonsmoking. Denies alcohol or illicit drug use. REVIEW OF SYSTEMS: Difficult to ascertain due to the patient's history of dementia. Pertinent positives in the HPI. PHYSICAL EXAMINATION: Vital Signs: Temperature 97.6 degrees, pulse rate 61, respiratory rate 18, blood pressure 101/52, O2 saturation 95% on nasal cannula at 2 L. He is in 0/10 pain. General: This is an elderly appearing gentleman, in no acute distress. Well- developed, well-nourished. HEENT: Sclera is anicteric. PERRLA. Respiratory: Occasional expiratory wheezes noted. Clear otherwise. Abdomen: Soft, protuberant, nontender with active bowel sounds. Cardiovascular: Normal S1, S2. Heart rate and rhythm regular. Musculoskeletal: The upper and lower extremities are atraumatic in appearance without edema or deformity. LABORATORY DATA: No labs today. IMAGING: Yesterday's chest x-ray shows no evidence of pneumothorax. Mild bibasilar subsegmental atelectasis. ASSESSMENT: 1. Left lung mass. 2. Probable chronic obstructive pulmonary disease. PLAN: The patient most likely has stage IV cancer. We discussed his disease status and prognosis. The patient understands this is not a curative disease. It is difficult to evaluate the patient while in the hospital. We have presented the patient with the option of comfort care versus possible treatment. The patient says he does want to pursue with therapy if possible. Due to difficulty evaluating him in the hospital, we will see him in clinic to decide if he is a candidate for any further treatment. Dictated by YAZMIN Gee for Enoch Hartmann MD cc: MD Jennie Vela MD [facility]QU[facility] HOSPITALEvelyn
--- NOTE | 2018-12-13 12:12 | Diag Imaging Result Doc PS360 ---
EXAM: CHEST-1 VIEW INDICATION: SOB TECHNIQUE: One view COMPARISON: 12/12/2018 FINDINGS: No pneumothorax is identified. There is atelectasis at both lung bases, more prominent on the left, that is stable. No new consolidation is identified. Cardiac silhouette is stable. IMPRESSION: Stable chest. Electronically signed by Neil Moser 12/13/2018 12:10 PM
[2018-12-13] MEDS: UROXATRAL PO SCH (20:26)
[2018-12-13] MEDS: ARICEPT PO SCH (20:26)
[2018-12-13] MEDS: DEPAKOTE ER PO SCH (20:26)
[2018-12-14] MEDS: DUONEB (A & A) INH SCH ×4 (03:24→20:27)
[2018-12-14] MEDS: HUMALOG SUBQ SCH ×4 (06:31→21:14)
--- NOTE | 2018-12-14 08:15 | Diag Imaging Result Doc PS360 ---
EXAM: CHEST-1 VIEW INDICATION: SOB TECHNIQUE: One view COMPARISON: 12/13/2018 FINDINGS: There is increasing opacity at the left lung base. It is slightly worse than the previous study. A component of this likely represents atelectasis. Superimposed infiltrate cannot be excluded. There is also likely a small left effusion. The right lung appears to be clear. Cardiac silhouette is stable. IMPRESSION: Slight increase in opacity at the left lung base as described. Electronically signed by Neil Moser 12/14/2018 8:13 AM
[2018-12-14] MEDS: SEROQUEL PO SCH ×2 (09:14→21:13)
[2018-12-14] MEDS: CARDIZEM CD PO SCH (09:14)
[2018-12-14] MEDS: SINEMET 25/100 PO SCH ×2 (09:14→21:13)
[2018-12-14] MEDS: SYNTHROID PO SCH (09:14)
[2018-12-14] MEDS: PRINIVIL PO SCH (09:15)
[2018-12-14] MEDS: NON-FORMULARY BULK MED SUBQ SCH ×2 (09:15→21:14)
[2018-12-14] MEDS: KLONOPIN PO SCH ×3 (09:15→21:13)
--- NOTE | 2018-12-14 14:18 | PROGRESS NOTE ---
DATE: 12/14/2018 SUBJECTIVE: Mr. Kinsey is awake and alert. He is talking about the ball games yesterday. Family feels like he is a little stronger. OBJECTIVE: Vital Signs: Temp 97.2 degrees, pulse 65, respirations 18, blood pressure 101/66. HEENT: Pupils are equal and round. Lungs: Clear in all lung lizarraga. Cardiovascular: Regular rhythm and rate without murmur or S3. Abdomen: Soft. Skin: Warm and dry. Urine output was about 600 mL. IMAGING AND LABORATORY DATA: Blood sugars 179, 138, 192. Chest x-ray from this morning: Slight increased opacity in the left lung base. ASSESSMENT AND PLAN: 1. Left lung mass. The patient most likely has stage IV cancer. Dr. Hartmann is following. Discussed disease status and prognosis. Understands it is not a curative disease. Difficult to evaluate the patient while in the hospital, and the patient was presented the option of comfort care versus possible treatment. Dr. Salgado and Dr. Hartmann will discuss this. 2. Probable chronic obstructive pulmonary disease. 3. Hypertension. 4. His appetite seems to be improving some. REVIEW OF ORDERS: He is on Depakote ER or divalproex ER 1000 mg at bedtime, Aricept 5 mg at bedtime, Seroquel 100 mg at bedtime, levodopa he takes 2 tablets b.i.d., Klonopin 1 mg I think 3 times a day, diltiazem CD 120 mg daily, Synthroid 100 mcg daily, Prinivil 10 mg a day, Seroquel 50 mg every a.m., and Ultram 50 mg every 6 hours p.r.n. cc: MD Jennie Angel MD
[2018-12-14] MEDS: DEMEROL IV PRN (21:13)
[2018-12-14] MEDS: UROXATRAL PO SCH (21:13)
[2018-12-14] MEDS: DEPAKOTE ER PO SCH (21:13)
[2018-12-14] MEDS: ARICEPT PO SCH (21:13)
[2018-12-15] MEDS: DEMEROL IV PRN ×2 (02:54→12:39)
[2018-12-15] MEDS: DUONEB (A & A) INH SCH ×4 (03:50→21:21)
[2018-12-15] MEDS: HUMALOG SUBQ SCH ×4 (06:20→21:02)
[2018-12-15] MEDS: SYNTHROID PO SCH (08:50)
[2018-12-15] MEDS: CARDIZEM CD PO SCH (08:50)
[2018-12-15] MEDS: KLONOPIN PO SCH ×3 (08:50→21:47)
[2018-12-15] MEDS: SINEMET 25/100 PO SCH ×2 (08:51→21:47)
[2018-12-15] MEDS: NON-FORMULARY BULK MED SUBQ SCH ×2 (08:51→21:48)
[2018-12-15] MEDS: SEROQUEL PO SCH ×2 (08:51→21:47)
[2018-12-15] MEDS: PRINIVIL PO SCH (08:51)
--- NOTE | 2018-12-15 12:35 | PROGRESS NOTE ---
DATE: 12/15/2018 SUBJECTIVE: Mr. Kinsey is sleeping, resting comfortably, sitting up in a chair. OBJECTIVE: Vital Signs: Temperature 97.5 degrees, pulse 82, respirations 18, blood pressure 125/91. HEENT: Pupils are equal and round. Lungs: Clear in all lung lizarraga. Cardiovascular: Regular rhythm and rate without murmur or S3. Abdomen: Soft. Skin: Warm and dry. Urine output was 1200 mL. IMAGING STUDIES: Chest x-ray from yesterday, slight increased opacity in the left lung base. Breathing is comfortable. ASSESSMENT AND PLAN: 1. Left lung mass. The patient likely with stage IV cancer. Dr. Hartmann is following. He understands it is not a curative disease so the family wants to discuss with Dr. Salgado what is the plan whether he should go home with hospice or whether he should try and pursue treatment. 2. Chronic obstructive pulmonary disease. 3. Hypertension. 4. Appetite which is improving. I do not see any change in his orders. Continue physical therapy. cc: MD Jennie Angel MD
--- NOTE | 2018-12-15 17:12 | PULMONOLOGY PROGRESS NOTE ---
DATE: 12/15/2018 SUBJECTIVE: The patient is resting comfortably in his bed. He is arousable to alert. He will follow commands. OBJECTIVE: Vital Signs: The patient has been afebrile for the last 24 hours. Blood pressure 113/52, heart rate 75, respiratory rate 19, oxygen saturation 96. HEENT: Pupils are equal and reactive. Oropharynx appears clear. Neck: Supple. Chest: Reveals decreased breath sounds right base. Cardiac exam: S1, S2. Abdomen: Soft. Extremities: Without edema. LABORATORIES: No new chemistries or CBC today. IMPRESSION: Stage IV lung cancer suspected with lung mass, adenopathy, marked increase in CEA level, and bone scan consistent with bony metastatic disease. PLAN: 1. Continue comfort measures. 2. Anticipate biopsy result tomorrow morning. 3. Anticipate discharge with completion of workup as an outpatient. cc: MD Jennie Melo MD
[2018-12-15] MEDS: UROXATRAL PO SCH (21:47)
[2018-12-15] MEDS: ARICEPT PO SCH (21:47)
[2018-12-15] MEDS: DEPAKOTE ER PO SCH (21:47)
[2018-12-16] MEDS: DUONEB (A & A) INH SCH ×4 (03:14→23:40)
[2018-12-16] MEDS: HUMALOG SUBQ SCH ×4 (06:20→20:28)
[2018-12-16] MEDS: PRINIVIL PO SCH (09:02)
[2018-12-16] MEDS: CARDIZEM CD PO SCH (09:02)
[2018-12-16] MEDS: KLONOPIN PO SCH ×3 (09:03→20:12)
[2018-12-16] MEDS: SINEMET 25/100 PO SCH ×2 (09:03→20:12)
[2018-12-16] MEDS: SEROQUEL PO SCH ×2 (09:04→20:13)
[2018-12-16] MEDS: NON-FORMULARY BULK MED SUBQ SCH ×2 (09:04→20:04)
[2018-12-16] MEDS: SYNTHROID PO SCH (09:04)
[2018-12-16] MEDS: ULTRAM PO PRN (09:27)
[2018-12-16] MEDS: DEMEROL IV PRN ×2 (12:20→20:28)
[2018-12-16] MEDS: DEPAKOTE ER PO SCH (20:12)
[2018-12-16] MEDS: ARICEPT PO SCH (20:13)
[2018-12-16] MEDS: UROXATRAL PO SCH (20:14)
--- NOTE | 2018-12-16 21:06 | PULMONOLOGY PROGRESS NOTE ---
DATE: 12/16/2018 SUBJECTIVE: The patient is awake and alert. He reports he is about to receive his medicines to help him go sleep at night. He reports his pain is controlled while on medicines. OBJECTIVE: Vital Signs: The patient has been afebrile for the last 24 hours. Oxygen saturation 97% on 3 L per nasal cannula. Blood pressure 141/72, heart rate 88, respiratory rate 36, oxygen saturation 97%. HEENT: Pupils are equal and reactive. Oropharynx appears clear. Neck: Supple. Chest: Reveals decreased breath sounds on the right. Cardiac: Regular rate. Abdomen: Soft. Extremities: Without edema. LABORATORIES: CT guided biopsy is pending. IMPRESSION: 1. Lung mass. 2. Adenopathy. 3. Elevated CEA level. 4. Bony lesions consistent with metastatic disease. PLAN: 1. Continue current medications for comfort. 2. Review pathology tomorrow. It should be available. 3. Anticipate additional workup/PET scan as an outpatient. cc: MD Jennie Melo MD
[2018-12-17] MEDS: DUONEB (A & A) INH SCH ×5 (02:56→21:30)
[2018-12-17] MEDS: HUMALOG SUBQ SCH ×4 (06:29→23:51)
[2018-12-17] MEDS: CARDIZEM CD PO SCH (08:46)
[2018-12-17] MEDS: KLONOPIN PO SCH ×3 (08:46→20:14)
[2018-12-17] MEDS: SYNTHROID PO SCH (08:46)
[2018-12-17] MEDS: PRINIVIL PO SCH (08:47)
[2018-12-17] MEDS: SINEMET 25/100 PO SCH ×2 (08:47→20:14)
[2018-12-17] MEDS: SEROQUEL PO SCH ×2 (08:47→20:14)
[2018-12-17] MEDS: NON-FORMULARY BULK MED SUBQ SCH ×2 (09:18→20:36)
[2018-12-17] MEDS: DEPAKOTE ER PO SCH (20:14)
[2018-12-17] MEDS: UROXATRAL PO SCH (20:14)
[2018-12-17] MEDS: ARICEPT PO SCH (20:14)
[2018-12-18] MEDS: DUONEB (A & A) INH SCH ×4 (04:18→19:50)
--- NOTE | 2018-12-18 05:45 | PULMONOLOGY PROGRESS NOTE ---
DATE: 12/17/2018 SUBJECTIVE: The patient has received his evening meals. He is arousable but drifts back to sleep. OBJECTIVE: Vital Signs: The patient has been afebrile for the last 24 hours. Blood pressure 117/65, heart rate 72, respiratory rate 16, oxygen saturation 98% on 3 L per nasal cannula. HEENT: Pupils are equal and reactive. Oropharynx appears clear. Neck: Supple. Chest: Reveals slight decreased breath sounds at the right base. Cardiac: S1, S2. Abdomen: Soft. Extremities: Without edema. 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 IMPRESSION: A 78-year-old with small cell carcinoma with extensive stage and associated by bony metastatic disease. PLAN: 1. Discussed with the patient when he is awake and alert. I did call his this evening and she is aware that he has small cell carcinoma. She will await additional discussion of possible treatments with Dr. Enoch Hartmann. 2. Continue comfort measures. 3. Anticipate discharge home soon. cc: MD Jennie Melo MD
[2018-12-18] MEDS: HUMALOG SUBQ SCH ×4 (06:41→23:06)
[2018-12-18] MEDS: NON-FORMULARY BULK MED SUBQ SCH ×2 (08:51→21:37)
[2018-12-18] MEDS: SYNTHROID PO SCH (08:52)
[2018-12-18] MEDS: PRINIVIL PO SCH (08:52)
[2018-12-18] MEDS: SINEMET 25/100 PO SCH ×2 (08:52→21:35)
[2018-12-18] MEDS: SEROQUEL PO SCH ×2 (08:52→21:37)
[2018-12-18] MEDS: KLONOPIN PO SCH ×3 (08:52→21:36)
[2018-12-18] MEDS: CARDIZEM CD PO SCH (08:52)
--- NOTE | 2018-12-18 11:19 | PROGRESS NOTE ---
DATE: 12/18/2018 SUBJECTIVE: Mr. Kinsey has stage IV small cell lung cancer with distant metastases. He is still wearing O2 at 3 L per nasal cannula. O2 saturations are ranging from 94% to 98 percent. He has not had any hemoptysis. Blood sugars are fluctuating. His sugars are ranging from 127 to 208. He has polyuria and polydipsia. OBJECTIVE: Blood pressure is stable. Temperature 97.5 degrees, pulse 89, respirations 22, and blood pressure 104/48.CV: Regular rate and rhythm. Lungs: Distant breath sounds in the bases bilaterally. Abdomen: Soft and nontender with active bowel sounds. Extremities: Without edema. ASSESSMENT AND PLAN: 1. Metastatic stage IV small cell lung cancer with distant metastases. Mr. Kinsey understands that he has a non curable lung cancer. He is interested in pursuing palliative chemo if he is strong enough to tolerate it. At this point, he is really too weak to tolerate aggressive chemotherapy. We have made arrangements for him to undergo short-term rehab. If he were able to improve his functional status to the point where he could undergo chemotherapy, he would like to do so. If he is not able to improve his functional status to the point of being able to tolerate chemo, then I believe he would be an excellent candidate for hospice. I am going to transition him off IV Demerol to MSIR 15 mg q.4 hours p.r.n. pain. We will continue physical therapy. 2. Type 2 insulin-dependent diabetes mellitus. Blood sugars are still too high. I am going to increase the Humalog to 50/50 to 20 units subcutaneously b.i.d. cc: Jennie Salgado MD
--- NOTE | 2018-12-18 12:41 | HEMO/ONC PROGRESS NOTE ---
DATE: 12/18/2018 SUBJECTIVE: Mr. Kinsey is sitting up in bed this morning. He is aware of his diagnosis and poor performance status, is continuing to wear oxygen via nasal cannula at 3 L. He denies any hemoptysis. OBJECTIVE: Vital Signs: Temperature 97.5 degrees, pulse rate 99, respiratory rate 18, blood pressure 108/47, O2 saturation 97% on 3 L via nasal cannula. Is in 0/10 pain. General: An elderly appearing male, in no acute distress. HEENT: Sclera is anicteric. Pupils are PERRLA. Cardiovascular: Normal S1, S2. Heart rate and rhythm regular. Respiratory: Decreased breath sounds, particularly in the right base. Abdomen: Protuberant, soft, nontender. Extremities: Without edema. LABORATORY DATA: He has had no recent labs. ASSESSMENT: Metastatic stage IV small cell lung cancer with distant metastasis. PLAN: Mr. Kinsey is aware that he has a non curable disease status. Dr. Isidro and Dr. Salgado have explained his poor prognosis and poor performance status with him. At this time, we are going to discuss comfort measures only with him and possibly pursue hospice. Dictated by YAZMIN Gee for Enoch Isidro MD As above. Discussed with Dr. Salgado and patient regarding pathology and prognosis. Comfort measures recommended. Enoch isidro MD cc: MD Jennie Vela MD [facility]
[2018-12-18] MEDS ORDERED: NON-FORMULARY BULK MED SUBQ SCH (21:00)
[2018-12-18] MEDS: MORPHINE IR PO PRN (21:36)
[2018-12-18] MEDS: ARICEPT PO SCH (21:36)
[2018-12-18] MEDS: DEPAKOTE ER PO SCH (21:36)
[2018-12-18] MEDS: UROXATRAL PO SCH (21:37)
[2018-12-19] MEDS: MORPHINE IR PO PRN (02:56)
[2018-12-19] MEDS: HUMALOG SUBQ SCH ×2 (07:19→11:52)
--- NOTE | 2018-12-19 07:34 | PULMONOLOGY PROGRESS NOTE ---
DATE: 12/18/2018 SUBJECTIVE: The patient is arousable to alert. He is asking for pain medicine and is sleeping tablet to go to bed. He has some generalized tremor. OBJECTIVE: Vital Signs: The patient has been afebrile for the last 24 hours. Blood pressure 147/63, heart rate 101, respiratory rate 18, oxygen saturation 99% on 3 L per nasal cannula. HEENT: Pupils are equal and reactive. Oropharynx appears clear. Neck: Neck is supple. Chest: Reveals diminished breath sounds at the right base. Cardiac: S1-S2. Abdomen: Soft. Extremities: Without edema. IMPRESSION: 1. Extensive-stage small cell carcinoma with bony metastatic disease. 2. Hypoxemic respiratory failure. 3. Deconditioning/protein-calorie malnutrition. PLAN: 1. Continue oxygen for hypoxemic respiratory failure. 2. Poor prognosis. Comfort measures versus palliative chemotherapy being discussed. cc: MD Jennie Melo MD
[2018-12-19] MEDS ORDERED: NS 250 ML IV ONE (08:41)
[2018-12-19] MEDS: DUONEB (A & A) INH SCH (08:42)
[2018-12-19] MEDS: CARDIZEM CD PO SCH (08:58)
[2018-12-19] MEDS: KLONOPIN PO SCH (08:58)
[2018-12-19] MEDS: SINEMET 25/100 PO SCH (08:58)
[2018-12-19] MEDS: SYNTHROID PO SCH (08:58)
[2018-12-19] MEDS: PRINIVIL PO SCH (08:58)
[2018-12-19] MEDS: SEROQUEL PO SCH (08:58)
[2018-12-19] MEDS: NON-FORMULARY BULK MED SUBQ SCH (08:59)
[2018-12-19] MEDS ORDERED: PLAVIX PO SCH (09:00)
--- NOTE | 2018-12-19 09:30 | DISCHARGE SUMMARY ---
ADMISSION DATE: 12/11/2018 DISCHARGE DATE: 12/19/2018 DISCHARGE DIAGNOSES: 1. Transient ischemic attack. 2. Acute respiratory failure with hypoxia. 3. Chronic respiratory failure with hypoxia requiring 2 L of O2 per nasal cannula. (A room air O2 saturation to 85% was noted on the morning of discharge). 4. Newly diagnosed small cell lung cancer with metastases to the ribs, liver and pelvic bones. 5. Vascular dementia with behavior issues. 6. Parkinson's disease. 7. Essential hypertension. 8. Primary hypothyroidism. 9. 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 DISCHARGE INSTRUCTIONS: 1. The patient will be transferred via ambulance to [facility] in order to undergo short-term rehab 2. Activity as tolerated. 3. 1800 calorie ADA diet. MEDICATIONS: 1. Acetaminophen 650 mg q.6 hours p.r.n. temperature greater than 101. 2. DuoNeb nebulized 4 times daily. 3. Uroxatral 10 mg at night. 4. Dulcolax suppositories 1 per rectum q.6 hours p.r.n. constipation. 5. Sinemet 25/100 2 tablets b.i.d. 6. Klonopin 1 mg t.i.d. 7. Plavix 75 mg daily. 8. Diltiazem 120 mg daily. 9. Valproic acid 1000 mg at night. 10. Aricept 5 mg daily. 11. Seroquel 50 mg in the morning, 100 mg at night. 12. Lisinopril 10 mg daily. 13. Morphine immediate release 15 mg q.6 hours p.r.n. pain. 14. Levothyroxine 100 mcg daily. 15. Humalog 50/50, 20 units subcutaneously b.i.d.. 16. O2 at 2 L per nasal cannula continuously. DISCHARGE PHYSICAL EXAMINATION: This is an elderly, frail, 78-year-old gentleman in no apparent distress. He his afebrile. BP 103/44, pulse 83 respiratory rate 21. CV: CV regular rate and rhythm. Lungs: Distant breath sounds with increased period of expiration. Abdomen: Soft, nontender, with active bowel sounds. Extremities: Without edema. Neurologic: He has a persistent resting tremor. HOSPITAL COURSE: Mr. Julius Kinsey was admitted to [facility] with a suspected transient ischemic attack. He was initially placed on a telemetry bed and neuro checks were performed every 4 hours. He was started on Lovenox. He would have sudden episodes of loss of vision. CT scan of the brain demonstrated chronic white matter changes. A follow up MRI of the brain demonstrated prominent atrophy and mild microvascular ischemic changes. No recent infarction, subdural fluid or tumor was noted. The patient remained in normal sinus rhythm on telemetry. He was transition to oral Plavix without further neurologic deficits. Prior to admission, his had reported that he had the palpitations and shortness of breath. His O2 saturations were as low as 70 at home. On arrival to the ER his O2 saturations were in the mid 90s on room air. His initial chest X-ray demonstrated clear lung lizarraga. Because of the palpitations, hypoxia and elevated D-dimer we performed a CT pulmonary angiogram. No pulmonary emboli were noted. He had an incidental finding of an irregular left upper lobe lesion with enlarged mediastinal and hilar lymph nodes suspicious for malignancy. A CT scan of the abdomen and pelvis demonstrated hepatic lesions. A bone scan demonstrated distant bone metastases. A CT guided biopsy was performed. It demonstrated a small cell lung cancer. Dr. Hartmann was consulted to see of the patient. Unfortunately treatment options are limited at this point in time. We do not feel that he is strong enough for aggressive intravenous chemotherapy. We have made arrangements for him to undergo short-term rehab. If he were to be able to significantly improve his functional capacity then potentially he would he could be a candidate for immunotherapy or even chemotherapy. If he is not able to improves physically and to improve his functional status then he will not be a candidate for aggressive chemotherapy and would be referred to hospice. Mr. Kinsey and his family understand that he has a terminal lung cancer and that treatment would be palliative at this point. We initially treated his pain with IV Demerol and then transitioned him to a MSIR 15 mg q.4 hours p.r.n. for pain. During his hospitalization he had increasing shortness of breath. He had no evidence of pneumonia or congestive heart failure. He is a former smoker. We felt that he probably has some early COPD. We started nebulizer treatments, and continued him on O2. We attempted to wean him off O2 today. His O2 saturation dropped to 85% on room air. He will require O2 at 2 L per nasal cannula. Having reached maximum hospital benefit, the patient was discharged in stable condition. cc: Jennie Salgado MD
[2018-12-19 11:04] VITALS: BP 84/44
== END 2018-12-19 13:05 | DRG 843 ==
LOC: SUPCPDRO → 2N 14:53 → ED 14:53
PROVIDERS: ADMIT Internal Medicine; ATTEND Internal Medicine